=== PATIENT | female | born 1990 | race Caucasian/White ===

== ENCOUNTER 2023-01-22 13:35 | Emergency (ER) | payer OTHER, SELFPAY ==
[2023-01-22 13:40] VITALS: BP 126/81; PULSE 71; RESP 20; TEMP 36.6; O2SAT 100
--- NOTE | 2023-01-22 14:02 | ED.URI ---
HPI - URI/Sore Throat General Chief Complaint: Upper Respiratory Infection Stated Complaint: dizziness; congestion; ear pain Time Seen by Provider: 01/22/23 14:04 History of Present Illness HPI Narrative: Patient presents with nasal congestion and bilateral ear pain. No fever no cough no shortness of breath no chest pain. Patient is taking ibuprofen for symptoms but nothing else. Related Data Home Medications Medication Instructions Recorded Confirmed escitalopram oxalate 10 mg tablet mg 01/22/23 phentermine 30 mg capsule mg 01/22/23 topiramate 50 mg tablet mg 01/22/23 Allergies Allergy/AdvReac Type Severity Reaction Status Date / Time No Known Allergies Allergy Unverified 04/27/19 11:37 Review of Systems Review of Systems: CONSTITUTIONAL: Denies fever, chills, or sweats. EYES: Denies visual changes, redness, or discharge. ENT: Denies rhinorrhea, congestion, sore throat, or otalgia. CARDIOVASCULAR: Denies chest pain, palpitations, or edema. RESPIRATORY: Denies cough or dyspnea. GASTROINTESTINAL: Denies abdominal pain, nausea, vomiting, or diarrhea. GENITOURINARY: Denies dysuria or hematuria. SKIN: Denies rash or itching. MUSCULOSKELETAL: Denies back pain, joint pain, or myalgia. NEUROLOGIC: Denies headache, numbness, or weakness. PSYCHIATRIC: Denies anxiety or depression. PMFSH Comments At time of signature, agree with nursing past medical, surgical, social and family history. There is no relevant family history pertinent to the presenting complaint Exam Narrative: My URI exam The patient is a well-developed, well-nourished in no acute distress. SKIN: Skin is warm and dry without erythema, swelling or exudate. There is good turgor. No tenting. HEAD: Atraumatic. Normocephalic. No temporal or scalp tenderness. EYES: Moist and bright. Sclera and conjunctivae normal. No discharge. PERRLA. Extraocular motions intact. Gross visual acuity intact. EARS: Pinna is normal shape and contour. Clear external auditory canals. TM pearly renner with good cone of light, no erythema or suppuration. Bilateral cerumen noted no gross hearing deficit. NOSE: pink, moist mucosa with good air movement. Clear rhinorrhea without nasal flaring. Septum midline. Mouth: moist mucous membranes. THROAT; mild erythema noted to posterior oropharynx with moderate postnasal drainage. Without exudate or ulceration.. Uvula midline. Normal movement of soft palate. NECK: Supple and nontender with full range of motion without discomfort. No meningeal signs. LUNGS: Equal and bilateral breath sounds without wheezes, rales or rhonchi. CHEST: The chest wall is without retractions or use of accessory muscles. HEART: Has a regular rate and rhythm without murmur, gallops, click or rub. ABDOMEN: Soft, nontender with positive active bowel sounds. No rebound tenderness. EXTREMITIES: Without cyanosis, clubbing or edema. Equal 2+ distal pulses and 2 second capillary refill noted. NEUROLOGIC: alert, active, . The patient moves all extremities with normal muscle strength. Normal muscle tone is noted. Normal coordination is noted. NO focal neurological findings noted. Course Course Level of Care: Express Care Visit Vital Signs Vital signs: Vital Signs Temperature 36.6 C 01/22/23 13:40 Pulse Rate 71 01/22/23 13:40 Respiratory Rate 20 01/22/23 13:40 Blood Pressure 126/81 01/22/23 13:40 Pulse Oximetry 100 01/22/23 13:40 Oxygen Delivery Room Air 01/22/23 13:40 Temperature 36.6 C 01/22/23 13:40 Pulse Rate 71 01/22/23 13:40 Respiratory Rate 20 01/22/23 13:40 Blood Pressure 126/81 01/22/23 13:40 Pulse Oximetry 100 01/22/23 13:40 Oxygen Delivery Room Air 01/22/23 13:40 MDM - URI/Sore Throat Differential Diagnosis Differential diagnosis: Likely upper respiratory infection, croup, otitis media, sinusitis, viral infection, influenza and pharyngitis; Unlikely bronchitis Discharge Plan Discharge Clinical Impression: Upper
== END 2023-01-22 14:07 | disposition home or self-care (01) ==
PROVIDERS: Emergency Provider Nurse Practitioner Family; PCP Internal Medicine
DX: J06.9 Acute upper respiratory infection, unspecified (principal); H69.93 Unspecified Eustachian tube disorder, bilateral
CPT/HCPCS: 99213; G0463

== ENCOUNTER 2023-06-07 17:52 | Emergency (ER) | payer OTHER, SELFPAY ==
[2023-06-07 17:58] VITALS: BP 139/84; PULSE 89; RESP 20; TEMP 37.2; O2SAT 100
--- NOTE | 2023-06-07 18:23 | ED.FEMALEGU ---
HPI - Female Genitourinary General Chief complaint: Urogenital-Female Stated complaint: urinary issue History of Present Illness HPI Narrative: 32-year-old female presents to the [facility] today complaining of burning with urination. Patient stated today she started not feeling well noticed that she was having burning with urination also noticed blood in her urine. Patient states she has never had a urinary tract infection in the past. Patient denies any abdominal pain, flank pain, or back pain. Denies any nausea vomiting diarrhea. Patient denies any concerns for STDs and denies any vaginal discharge. Patient denies any fevers, chills or body aches. Related Data Home Medications Medication Instructions Recorded Confirmed escitalopram oxalate 10 mg tablet 10 mg PO DIRECTED 01/22/23 06/07/23 phentermine 30 mg capsule 30 mg PO DIRECTED 01/22/23 06/07/23 topiramate 50 mg tablet 50 mg PO DIRECTED 01/22/23 06/07/23 Allergies Allergy/AdvReac Type Severity Reaction Status Date / Time No Known Allergies Allergy Verified 06/07/23 18:11 Review of Systems Review of Systems: CONSTITUTIONAL: Denies fever, chills, or sweats. EYES: Denies visual changes, redness, or discharge. ENT: Denies otalgia and sore throat CARDIOVASCULAR: Denies chest pain, palpitations, or edema. RESPIRATORY: Denies cough or dyspnea. GASTROINTESTINAL: Denies abdominal pain, nausea, vomiting, or diarrhea. GENITOURINARY: Positive for dysuria and hematuria SKIN: Denies rash or itching. MUSCULOSKELETAL: Denies back pain, joint pain, or myalgia. NEUROLOGIC: Denies headache, numbness, or weakness. Pertinent positives per HPI. PMFSH Comments At the time of my signature, I reviewed and agree with the nursing past medical, surgical, social, and family history. There is no relevant family history pertinent to the patient complaint. Exam Narrative: GENERAL: This is a well-nourished, well-developed patient, in no apparent distress. HEAD: normocephalic, atraumatic. EYES: Sclera clear/white. Vision is grossly intact. EARS: External ears normal, auditory canals clear and without drainage, TMs normal without perforation. Hearing grossly intact. NOSE: External nose normal with no obvious nasal discharge, nares without redness, no rhinorrhea. THROAT: Mucous membranes moist, posterior pharynx clear. NECK: Neck supple, non-tender without lymphadenopathy, masses or thyromegaly. CARDIOVASCULAR: Regular rate and rhythm without murmurs, gallops, or rubs. RESPIRATORY: Clear to auscultation. Breath sounds equal bilaterally. No wheezes, rales, or rhonchi. GASTROINTESTINAL: Abdomen soft, non-tender, nondistended. Bowel sounds are active. No hepato-splenomegaly, or palpable masses. No guarding. No CVA tenderness present SKIN: warm, intact with no suspicious lesions or rash, good texture and turgor. NEURO: awake, alert, and oriented to person, place and time. There were no obvious focal neurologic abnormalities. EXTREMITIES: No clubbing, cyanosis, or edema. No joint tenderness, effusion, or edema noted. BACK: Nontender without deformity or crepitus. No flank tenderness. Course Course Level of Care: Express Care Visit Vital Signs Vital signs: Vital Signs Temperature 99.0 F 06/07/23 17:58 Pulse Rate 89 06/07/23 17:58 Respiratory Rate 20 06/07/23 17:58 Blood Pressure 139/84 06/07/23 17:58 Pulse Oximetry 100 06/07/23 17:58 Oxygen Delivery Room Air 06/07/23 17:58 Temperature 99.0 F 06/07/23 17:58 Pulse Rate 89 06/07/23 17:58 Respiratory Rate 20 06/07/23 17:58 Blood Pressure 139/84 06/07/23 17:58 Pulse Oximetry 100 06/07/23 17:58 Oxygen Delivery Room Air 06/07/23 17:58 MDM - Female Genitourinary MDM Narrative Medical decision making narrative: We will send a urine culture off to the lab; if the culture identifies an organism that the prescribed antibiotic will not treat, you will receive a phone call
== END 2023-06-07 18:37 | disposition home or self-care (01) ==
PROVIDERS: Emergency Provider Nurse Practitioner Family
DX: N39.0 Urinary tract infection, site not specified (principal)
CPT/HCPCS: 81003; 87077; 87086; 87186; 99213; G0463

== ENCOUNTER 2023-07-06 09:43 | Emergency (ER) | payer OTHER, SELFPAY ==
[2023-07-06 09:48] VITALS: BP 119/85; PULSE 79; RESP 16; TEMP 36.4; O2SAT 100
--- NOTE | 2023-07-06 09:55 | ED.FEMALEGU ---
HPI - Female Genitourinary General Chief complaint: Urogenital-Female Stated complaint: Urinary Problem Time Seen by Provider: 07/06/23 09:58 Source: patient and RN notes reviewed Mode of arrival: ambulatory Limitations: no limitations History of Present Illness HPI Narrative: 32-year-old female presents with concern for dysuria, frequency, urgency, cramping, low back pain. She reports symptoms started last night. She reports she had a urinary tract infection about a month ago. She denies fever, aches, chills, nausea, vomiting. MD elicited complaint: UTI Related Data Home Medications Medication Instructions Recorded Confirmed escitalopram oxalate 10 mg tablet 10 mg PO DAILY 01/22/23 07/06/23 topiramate 50 mg tablet 50 mg PO DIRECTED 01/22/23 07/06/23 Allergies Allergy/AdvReac Type Severity Reaction Status Date / Time No Known Allergies Allergy Verified 07/06/23 09:56 Review of Systems Review of Systems: CONSTITUTIONAL: Denies malaise, chills, sweats, or fever. CARDIOVASCULAR: Denies chest pain, palpitations, or edema. RESPIRATORY: Denies cough or dyspnea. GASTROINTESTINAL: Denies abdominal pain, nausea, vomiting, diarrhea GENITOURINARY: Reports dysuria, frequency, urgency, suprapubic pressure. Denies flank pain or hematuria. SKIN: Denies rash or itching. MUSCULOSKELETAL: Reports low back pain. Denies myalgia. All systems reviewed & are unremarkable except as noted in HPI and below PMFSH Comments At time of signature, agree with nursing past medical, surgical, social and family history. There is no relevant family history pertinent to the presenting complaint Exam Narrative: GENERAL: Well-appearing, well-nourished, and in no acute distress. HEAD: Normocephalic. EYES: PERRLA, conjunctivae clear. NECK: Supple. No lymphadenopathy CHEST: Clear to auscultation. No respiratory distress. HEART: Regular rate and rhythm. ABDOMEN: Soft, nontender upon palpation, nondistended, normal active bowel sounds, no palpable or pulsatile masses, no guarding. Mild bilateral cVA tenderness SKIN: Warm, dry, no rash. NEURO: Alert and oriented x3. PSYCH: Normal mood and affect Course Course Emergency Course: Patient is aware of diagnosis, understands and agrees to treatment plan. Anticipatory guidance given. Patient agrees to follow-up as directed and is aware of reasons to seek care at the emergency department. Portions of this record may have been created with voice recognition software Level of Care: Express Care Visit Vital Signs Vital signs: Vital Signs Temperature 97.5 F L 07/06/23 09:48 Pulse Rate 79 07/06/23 09:48 Respiratory Rate 16 07/06/23 09:48 Blood Pressure 119/85 07/06/23 09:48 Pulse Oximetry 100 07/06/23 09:48 Oxygen Delivery Room Air 07/06/23 09:48 Temperature 97.5 F L 07/06/23 09:48 Pulse Rate 79 07/06/23 09:48 Respiratory Rate 16 07/06/23 09:48 Blood Pressure 119/85 07/06/23 09:48 Pulse Oximetry 100 07/06/23 09:48 Oxygen Delivery Room Air 07/06/23 09:48 Reviewed. MDM - Female Genitourinary MDM Narrative Medical decision making narrative: Exam findings and UA show no acute concerns or changes; patient is non-toxic appearing and is in no distress. Patient is appropriate for outpatient treatment and follow-up. Differential Diagnosis Differential diagnosis: Likely urinary tract infection and cystitis Critical Care Time Critical Care Time Critical Care Time: No Discharge Plan Discharge Clinical Impression: Urinary tract infection Patient Disposition: Home, Self-Care Condition: Stable Instructions: Antibiotic Form, Urinary Tract Infection in Women (ED) Additional Instructions: We will send a urine culture to the lab; if the culture identifies an organism that the prescribed antibiotic will not treat, you will receive a phone call from an urgent care staff member and an appropriate antibiotic will be prescribed. -Your sy
== END 2023-07-06 10:08 | disposition home or self-care (01) ==
PROVIDERS: Emergency Provider Nurse Practitioner; PCP Internal Medicine
DX: N39.0 Urinary tract infection, site not specified (principal); F41.9 Anxiety disorder, unspecified
CPT/HCPCS: 81003; 87077; 87086; 87186; 99213; G0463

== ENCOUNTER 2023-12-27 03:50 | Emergency (ER) | payer OTHER, SELFPAY ==
[2023-12-27] VITALS (13 sets, daily range): BP systolic 106–130; BP diastolic 62–84; PULSE 68–100; RESP 15–20; TEMP 36.7; O2SAT 98–100
--- NOTE | ~2023-12-27 | XR_ITS ---
Clinical Indication: Chest pain PA and lateral views of the chest: Comparison: None Findings: The lungs are clear, without evidence of focal consolidation or pleural effusion. Cardiome diastinal silhouette is within normal limits. Bones and soft tissues are unremarkable. Impression: Normal chest. Reviewed, dictated and finalized at location . [facility] Impression: Normal chest.
--- NOTE | 2023-12-27 03:51 | ECG_ITS ---
Measurements Intervals [place] Rate: 87 P: 43 OH: 156 QRS: 15 QRSD: 78 T: 38 QT: 337 QTc: 407 Interpretive Statements SINUS RHYTHM BASELINE ARTIFACT- I, II NORMAL ECG NO PREVIOUS ECG AVAILABLE FOR COMPARISON Electronically Signed On 12-27-2023 6:28:57 [employer] ERADICATOR by Uziel Bradshaw D.O.
--- NOTE | 2023-12-27 04:16 | ED.GENADULT ---
HPI - General Adult General Chief complaint: Chest Pain Stated complaint: Chest pain Time Seen by Provider: 12/27/23 03:57 History of Present Illness HPI narrative: this is a 33-year-old female presenting with 2 days of chest pain. Patient says she woke up with pain in the center of her sternum. She says is an achy pain that feels like a pulled muscle. It is worse when she moves her arms. It is worse when she pushes the center of her chest. She can not recall any increased physical activity. No risk factors for DVT /PE. No fever chills cough, diaphoresis vomiting or other symptoms. Patient has had chest pain like this several years ago and underwent a full cardiac workup that was negative. Related Data Home Medications Medication Instructions Recorded Confirmed escitalopram oxalate 10 mg tablet 10 mg PO DAILY 01/22/23 07/06/23 topiramate 50 mg tablet 50 mg PO DIRECTED 01/22/23 07/06/23 Allergies Allergy/AdvReac Type Severity Reaction Status Date / Time No Known Allergies Allergy Verified 07/06/23 09:56 Exam Narrative: APPEARANCE: No apparent distress. Head: atraumatic. EYES: EOMI, NOSE: Atraumatic NECK: Trachea midline RESPIRATORY: No increased rate of breathing CARDIOVASCULAR: RRR, No peripheral edema ABDOMINAL: Non-distended MUSCULOSKELETAl: reproducible tenderness to palpation over the sternum. pain with the crowing rooster maneuver. NEURO: Alert. Moving 4/4 extremities SKIN:: Warm, dry. Normal color PSYCHIATRIC: Normal affect Course Vital Signs Vital signs: Vital Signs Pulse Rate 69 12/27/23 04:05 Pulse Oximetry 98 12/27/23 04:05 Oxygen Delivery Room Air 12/27/23 04:05 Temperature 98.1 F 12/27/23 04:06 Pulse Rate 86 12/27/23 04:06 Respiratory Rate 16 12/27/23 04:06 Blood Pressure 119/62 12/27/23 04:06 Pulse Oximetry 100 12/27/23 04:06 Oxygen Delivery Room Air 12/27/23 04:06 Medical Decision Making [facility] Narrative Medical decision making narrative: -Course: 33-year-old female presenting with chest pain. Chest pain is reproducible on palpation and inducible with the crowing rooster maneuver. this is consistent with chest wall pain/chostochondritis. Patient will be trialed on a course of NSAIDs and discharged with primary care follow-up. 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 Independent EKG interpretation: Rhythm [sinus], Rate [87], Isabella -[normal], OH -[normal], QRS [narrow], QTC [normal], T waves -[negative for concerning inversions], ST Segments - [Negative for concerning elevations] Final interpretations: [Normal Sinus Rhythm] test considered but not ordered: PE studies- perc negative, -Interventions: Motrin, Tylenol -Shared decision making / Disposition: discharged -RX Motrin Tylenol Robaxin Vital Signs Vital Signs: Vital Signs Pulse Rate 69 12/27/23 04:05 Pulse Oximetry 98 12/27/23 04:05 Oxygen Delivery Room Air 12/27/23 04:05 Temperature 98.1 F 12/27/23 04:06 Pulse Rate 86 12/27/23 04:06 Respiratory Rate 16 12/27/23 04:06 Blood Pressure 119/62 12/27/23 04:06 Pulse Oximetry 100 12/27/23 04:06 Oxygen Delivery Room Air 12/27/23 04:06 Discharge Plan Discharge Clinical Impression: Acute chest wall pain Patient Disposition: Home, Self-Care Condition: Stable Instructions: Antibiotic Form, Chest Wall Pain (ED) Additional Instructions: please take Motrin Tylenol Robaxin for chest wall pain. Please follow-up with your primary care physician. Return if you feel you are getting worse. Prescriptions: New acetaminophen 500 mg tablet 1,000 mg PO TID PRN (Reason: shey) 7 Days Qty: 42 0RF ibuprofen 800 mg tablet 800 mg PO TID PRN (Reason: p
[2023-12-27] MEDS: IBUPROFEN 400 MG TABLET 800 MG PO (04:43)
[2023-12-27] MEDS: ACETAMINOPHEN 500 MG TABLET 1000 MG PO (04:43)
== END 2023-12-27 05:23 | disposition home or self-care (01) ==
LOC: ANHED 05:04
PROVIDERS: Emergency Provider Emergency Medicine; PCP Internal Medicine
DX: R07.89 Other chest pain (principal)
CPT/HCPCS: 71046; 93005; 99284; A9270

== ENCOUNTER 2024-03-12 01:43 | Emergency (ER) | payer OTHER, SELFPAY ==
[2024-03-12 01:47] VITALS: BP 112/71; PULSE 109; RESP 19; TEMP 36.5; O2SAT 98
--- NOTE | 2024-03-12 01:55 | ECG_ITS ---
SEE SCANNED COPY FOR CONFIRMED REPORT MTDD
--- NOTE | 2024-03-12 01:55 | ED.NAVMDI ---
HPI - Nausea/Vomiting/Diarrhea General Chief complaint: Nausea/Vomiting/Diarrhea <JENSEN Steen Last Filed: 03/12/24 02:40> Stated complaint: N/V, lightheaded, chills <JENSEN Steen Last Filed: 03/12/24 02:40> Time Seen by Provider: 03/12/24 01:46 <JENSEN Steen Last Filed: 03/12/24 02:40> History of Present Illness HPI Narrative: 33-year-old female presents to emergency department for nausea and vomiting that started at 1700 in the evening. Patient states she began vomiting multiple times and is feeling extremely nauseous. She is reporting some diffuse abdominal discomfort but denies focal abdominal pain. LMP 3 days ago. Last bowel movement was today and normal. She denies recorded fever but does states she feels feverish in reports chills. She denies cough congestion, otalgia or sore throat, dysuria or hematuria, diarrhea or recent sick contacts. <JENSEN Steen Last Filed: 03/12/24 02:40> Related Data Home medications: Home Medications Medication Instructions Recorded Confirmed escitalopram oxalate 10 mg tablet 10 mg PO DAILY 01/22/23 07/06/23 topiramate 50 mg tablet 50 mg PO DIRECTED 01/22/23 07/06/23 <JENSEN Steen Last Filed: 03/12/24 02:40> Allergies/Adverse reactions: Allergies Allergy/AdvReac Type Severity Reaction Status Date / Time No Known Allergies Allergy Verified 03/12/24 01:49 <JENSEN Steen Last Filed: 03/12/24 02:40> Review of Systems Review of Systems: CONSTITUTIONAL: Denies fever, chills, or sweats. EYES: Denies visual changes, redness, or discharge. ENT: Denies rhinorrhea, congestion, sore throat, or otalgia. CARDIOVASCULAR: Denies chest pain, palpitations, or edema. RESPIRATORY: Denies cough or dyspnea. GASTROINTESTINAL: See HPI GENITOURINARY: Denies dysuria or hematuria. SKIN: Denies rash or itching. MUSCULOSKELETAL: Denies back pain, joint pain, or myalgia. NEUROLOGIC: Denies headache, numbness, or weakness. PSYCHIATRIC: Denies anxiety or depression. <JENSEN Steen Last Filed: 03/12/24 02:40> Exam Narrative: GENERAL: Well-appearing, well-nourished, and in no acute distress. HEAD: Normocephalic, atraumatic. EYES: PERRLA and EOMI. ENT: Nares clear, no rhinorrhea or epistaxis. Mucous membranes moist. NECK: Supple. CHEST: Clear to auscultation. No respiratory distress. HEART: Regular rate and rhythm. No murmur heard. Normal peripheral pulses. ABDOMEN: Soft, nontender, nondistended, normal active bowel sounds. no guarding, rebound or rigidity. No CVA tenderness. EXTREMITIES: Normal range of motion. No edema. SKIN: Warm, dry, no rash. NEURO: No focal deficits. Alert and oriented x3 <JENSEN Steen Last Filed: 03/12/24 02:40> Course Vital Signs Vital signs: Vital Signs Temperature 36.5 C 03/12/24 01:47 Pulse Rate 109 H 03/12/24 01:47 Respiratory Rate 03/12/24 01:47 Blood Pressure 112/71 03/12/24 01:47 Pulse Oximetry 98 03/12/24 01:47 Oxygen Delivery Room Air 03/12/24 01:47 Temperature 36.5 C 03/12/24 01:47 Pulse Rate 109 H 03/12/24 01:47 Respiratory Rate 03/12/24 01:47 Blood Pressure 112/71 03/12/24 01:47 Pulse Oximetry 98 03/12/24 01:47 Oxygen Delivery Room Air 03/12/24 01:47 <JENSEN Steen Last Filed: 03/12/24 02:40> Vital Signs Temperature 36.5 C 03/12/24 01:47 Pulse Rate 109 H 03/12/24 01:47 Respiratory Rate 03/12/24 01:47 Blood Pressure 112/71 03/12/24 01:47 Pulse Oximetry 98 03/12/24 01:47 Oxygen Delivery Room Air 03/12/24 01:47 Temperature 36.5 C 04/15/24 01:47 Pulse Rate 109 H 03/12/24 01:47 Respiratory Rate 19 03/12/24 01:47 Blood Pressure 112/71 03/12/24 01:47 Pulse Oximetry 98 03/12/24 01:47 Oxygen Delivery Room Air 03/12/24 01:47 <Torsten Eid MD - Last Filed: 03/12/24 04:07> RICHARD -
[2024-03-12] MEDS: FAMOTIDINE 20 MG/2 ML VIAL IV PUSH (02:22)
[2024-03-12] MEDS: ONDANSETRON INJ 4 MG/2 ML VIAL IV PUSH (02:22)
[2024-03-12] MEDS: SODIUM CHLORIDE 0.9% IV 1,000 ML 999 ML IV CONT (02:23)
[2024-03-12] MEDS: ACETAMINOPHEN 500 MG TABLET 1000 MG PO (02:29)
[2024-03-12 02:31] LABS: Hematocrit 40.9 % (37.0-47.0); Mean Corpuscular HGB Conc 31.8 g/dl (32-36); Mean Corpuscular Hemoglobin 26.4 pg (26-34); Mean Corpuscular Volume 83.1 fl (80-100); Mean Platelet Volume 11.4 fl (7.4-10.4); Platelet Count Result 215 k/mm3 (150-375); Red Blood Count 4.92 M/mm3 (4.2-5.4); Red Cell Distribution Width 15.2 % (11.5-14.5); White Blood Count 8.4 K/mm3 (4.5-10.0)
[2024-03-12 02:43] LABS: Lactic Acid Reflex 1.2 mmol/L (0.7-2.0)
[2024-03-12 02:44] LABS: Alanine Aminotransferase 16 U/L (6-35); Albumin Level 4.4 g/dL (3.5-5.1); Alkaline Phosphatase 73 U/L (38-126); Anion Gap 11 mmol/L (4-12); Aspartate Amino Transferase 21 U/L (14-36); Bilirubin,Total 0.7 mg/dL (0.2-1.3); Blood Urea Nitrogen 19 mg/dL (7-17); Calcium 9.2 mg/dL (8.4-10.2); Carbon Dioxide 19 mmol/L (22-30); Chloride 107 mmol/L (98-107); Estimated CRCL calculation 90 ml/min; Estimated Glomerular Filt Rate > 60; Glucose 127 mg/dL (65-110); Lipase 61 U/L (23-300); Potassium 3.8 mmol/L (3.4-5.0); Sodium 137 mmol/L (137-145)
[2024-03-12 02:53] LABS: Band Neutrophils Percent 10 % (0-6); Lymphocytes Absolute Manual 0.16 K/mm3 (1.1-4.5); Lymphocytes Percent Manual 2 % (18-44); Monocytes Absolute Manual 0.33 K/mm3 (0.1-0.90); Monocytes Percent Manual 4 % (3-9); Neutrophils Absolute Manual 7.89 K/mm3 (1.7-7.2); Neutrophils Percent Manual 84 % (46-73); Platelet Estimate Adequate (Adequate); Total Cells Counted 100
[2024-03-12 02:54] LABS: Anisocytosis 1+; Schistocytes None Seen
[2024-03-12 03:13] LABS: Influenza A QL RT-PCR Negative (Negative); Influenza B QL RT-PCR Negative (Negative); RSV RNA, RT-PCR Negative (Negative); SARS-CoV-2 RNA PCR Negative (Negative)
[2024-03-12 03:43] LABS: Appearance Urine Clear (Clear); Bilirubin Urine Negative (Negative); Blood Urine Negative (Negative); Color Urine Yellow (Yellow); Glucose Urine UA Negative (Negative); Ketones Urine 1+ mg/dL (Negative); Leukocyte Esterase Ur Negative LEU/UL (Negative); Nitrate Urine Negative (Negative); Protein Urine Negative (Negative); Specific Grav Ur 1.022 (1.001-1.035); pH Urine 7.5 (5.0-9.0)
[2024-03-12 03:59] LABS: Add Urine Microscopic? NO
== END 2024-03-12 04:20 | disposition home or self-care (01) ==
PROVIDERS: Physician Assistant; Emergency Provider Emergency Medicine
DX: K52.9 Noninfective gastroenteritis and colitis, unspecified (principal); Z20.822 Contact with and (suspected) exposure to COVID-19
CPT/HCPCS: 36415; 80053; 81003; 81025; 83605; 83690; 85025; 87637; 93005; 96361; 96374; 96375; 99284; A9270; J2405; J7030

== ENCOUNTER 2024-10-02 15:28 | Emergency (ER) | payer OTHER, SELFPAY ==
[2024-10-02 15:33] VITALS: BP 114/68; PULSE 77; RESP 16; TEMP 36.6; O2SAT 100
[2024-10-02 16:01] LABS: EDUAAPPEAR Cloudy; EDUABILI 1+ (Negative); EDUABLOOD 3+ (Negative); EDUACOLOR1 Dark; EDUAGLUCOSE Negative (Negative); EDUAKETONE Trace (Negative); EDUALEUKO Trace (Negative); EDUANITRATE Negative (Negative); EDUAPROTEIN 2+ (Negative)
--- NOTE | 2024-10-02 16:14 | ED.FEMALEGU ---
HPI - Female Genitourinary General Chief complaint: Urogenital-Female Stated complaint: poss UTI Source: patient and RN notes reviewed Mode of arrival: ambulatory Limitations: no limitations History of Present Illness HPI Narrative: 34-year-old female presented for complaint of burning with urination and suprapubic discomfort. 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 States she gets UTIs that progress quickly. Last UTI approx 1 year ago. denies hematuria, nausea, vomiting, abdominal pain, flank pain, constipation, diarrhea, fevers or chills. Related Data Home Medications Medication Instructions Recorded Confirmed escitalopram oxalate 10 mg tablet 10 mg PO DAILY 01/22/23 10/02/24 semaglutide (weight loss) 0.5 0.5 mg subcut WEEKLY 10/02/24 10/02/24 mg/0.5 mL subcutaneous pen injector (Wegovy) Allergies Allergy/AdvReac Type Severity Reaction Status Date / Time No Known Allergies Allergy Verified 10/02/24 15:50 Review of Systems Review of Systems: CONSTITUTIONAL: Denies body aches, fever, chills, or sweats. CARDIOVASCULAR: Denies chest pain, palpitations, or edema. RESPIRATORY: Denies cough or dyspnea. GASTROINTESTINAL: Denies abdominal pain, nausea, vomiting, or diarrhea. GENITOURINARY: Reports dysuria, denies frequency, urgency, hematuria, flank pain SKIN: Denies rash, itching, or wounds. MUSCULOSKELETAL: Denies back pain or myalgia. PMFSH Comments At time of signature, I have reviewed and agree with nursing past medical, surgical, social and family history unless otherwise noted. Please see nursing chart for further information. There is no relevant family history pertinent to the presenting complaint Exam Narrative: GENERAL: Well-appearing ENT: Mucous membranes pink and moist. CHEST: No respiratory distress. Clear to auscultation. HEART: Regular rate and rhythm. ABDOMEN: Soft, nontender, nondistended, normal active bowel sounds. No CVA tenderness SKIN: Warm, dry, no rash. NEURO: No focal deficits. Alert and oriented x3. Gait steady. PSYCH: Normal affect. Course Course Emergency Course: Patient is aware of diagnosis, understands and agrees to treatment plan. Anticipatory guidance given. Patient agrees to follow-up as directed and is aware of reasons to seek care at the emergency department. Portions of this record may have been created with voice recognition software Level of Care: [facility] Care Visit Vital Signs Vital signs: Vital Signs Temperature 97.8 F 10/02/24 15:33 Pulse Rate 77 10/02/24 15:33 Respiratory Rate 16 10/02/24 15:33 Blood Pressure 114/68 10/02/24 15:33 Pulse Oximetry 100 10/02/24 15:33 Oxygen Delivery Room Air 10/02/24 15:33 Temperature 97.8 F 10/02/24 15:33 Pulse Rate 77 10/02/24 15:33 Respiratory Rate 16 10/02/24 15:33 Blood Pressure 114/68 10/02/24 15:33 Pulse Oximetry 100 10/02/24 15:33 Oxygen Delivery Room Air 10/02/24 15:33 Reviewed MDM - Female Genitourinary MDM Narrative Medical decision making narrative: Discussed physical exam findings and urine dip. Reviewed Rx. Advised supportive measures and signs/symptoms to go to the ER. Pt is appropriate for outpt treatment and f/u. Differential Diagnosis Differential diagnosis: Likely urinary tract infection, vaginitis, cystitis and other Lab Data Labs: Lab Results 10/02/24 Range/Units 15:42 POC Urine Color Dark POC Urine Clarity Cloudy POC Urine pH 6.0 POC Ur Specif [place] 1.030 POC Urine Protein 2+ (Negative) POC Ur Glucose (UA) Negative (Negative) POC Urine Ketones Trace (Negative) POC Urine Blood 3+ (Negative) POC Urine Nitrite Negative (Negative) POC Urine Bilirubin 1+ (Negative) POC Urine Urobilinogen 1.0 POC U Leukocyte Esteras Trace (Negative) Discharge Plan Discharge Clinical Impression: Urinary tract infection Patient Disposition: Home, Self-Care Condition: Stable Instructions: Antibiotic Form, Urinary Tract Infection in Women (ED) Additional Instructions: Take the antibiotic as prescribed The urine will be sent of for a culture to identify what type of bacteria is causing your infection. If the culture shows that the antibiotic will not get rid of your infection, you will be notified and a new antibiotic will be called in for you. Increase water intake you will need to follow up with your PCP, call to schedule an appointment. Go to the ER for any worsening symptoms or concerns Prescriptions: New nitrofurantoin monohyd/m-cryst [Macrobid] 100 mg capsule 100 mg PO Q12H 5 Days Qty: 10 0RF Rx Instructions: must administer with a meal/food phenazopyridine [Pyridium] 200 mg tablet 200 mg PO TID 2 Days Qty: 6 0RF No Action escitalopram oxalate 10 mg tablet 10 mg PO DAILY Wegovy 0.5 mg/0.5 mL pen injector 0.5 mg SUBCUT WEEKLY Follow-up/Referrals: Rolando,Meron Swartz [Primary Care Provider] - Time of Disposition: 16:15
== END 2024-10-02 16:17 | disposition home or self-care (01) ==
PROVIDERS: Emergency Provider Nurse Practitioner Family; PCP Nurse Practitioner
DX: N39.0 Urinary tract infection, site not specified (principal)
CPT/HCPCS: 81003; 87086; 99213; G0463

== ENCOUNTER 2025-06-21 19:01 | Emergency (ER) | payer OTHER, SELFPAY ==
--- NOTE | ~2025-06-21 | XR_ITS ---
EXAMINATION: XR toe 4th LT min 2V DATE: 06/21/2025 19:25 INDICATION: Left fourth toe feels floppy post injury 4 weeks prior. TECHNIQUE: Dorsal plantar, lateral and 2 oblique views of the left fourth toe were obtained. COMPARISON: None FINDINGS: Oblique diaphyseal fracture of the left fourth proximal phalanx with minimal dorsal lateral displacem ent, 7 degrees dorsal angulation and 2 mm proximal migration with overriding. No evident periosteal r eaction or callus formation yet apparent. No other fractures identified. Joint spaces are normal. IMPRESSION: Extra articular diaphyseal fracture of the left fourth proximal phalanx with minimal displacement and some degree dorsal angulation which remains ununited with no productive changes of healing yet appar ent. Reviewed, dictated and finalized at location A. IMPRESSION: Extra articular diaphyseal fracture of the left fourth proximal phalanx with mi nimal displacement and some degree dorsal angulation which remains ununited wit h no productive changes of healing yet apparent.
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
--- OUTSIDE RECORDS SUMMARY | 2025-06-21 19:04 | XMS_ITS | Clinical Summary ---
Author Organization [facility] Address [address] [place] [id number] Care Team Providers Care Photo Technologist Name Role Phone Unavailable Primary Care Provider Unavailabl e Immunizations Immunization Administration Dates Next Due INFLUENZA VACCINE QUADRIVALENT 6 MOS UP PF IM Social History Tobacco Use Types Packs/Day Years Used Date Smoking Tobacco: Never Assessed Comments Unknown Sex and Gender Information Value Date Recorded Sex Assigned at Not on file Legal Sex Female 8:07 AM CDT Gender Identity Not on file Sexual Orientation Not on file Plan of Treatment Health Maintenance Due Date Last Done Comments HPV VACCINES (1 - 3-dose series) 2007 DTAP/TDAP/TD VACCINES (1 - Tdap) 2011 HEPATITIS B VACCINES (1 of 3 - 19+ 3-dose series) 08/29 HPV/Cotest (21-29) 2013 CERVICAL CANCER SCREENING 2022 HPV/Cotest (30-65) 2022 PAP SMEAR 2022 INFLUENZA VACCINE (#1) 2025 08/19/2020 Insurance [employer] O OPEN ACCESS
--- OUTSIDE RECORDS SUMMARY | 2025-06-21 19:04 | XMS_ITS | Clinical Summary ---
Author Organization [facility] Address [address] [place] [address] Care Team Providers Care Drawing Machine Operator Name Role Phone Shantel Taylor MD Primary Care Provider [phone] Allergies No known active allergies Medications ergocalciferol [...] CBC. Assessment & Plan (11/26/2019 10:25 PM SANDING MACHINE BUFFER): Continue iron supplementation and check iron levels [...] ears Assessment & Plan (01/27/2023 10:26 AM SANDING MACHINE BUFFER): Ordered Azithromycin and Medrol- take as prescribed Patient educated on new medications and side effects Patient advised to stop Medrol if she has increased or racing heart and/or palpitations Encouraged to call and schedule appoint if no improvement in 1 week Follow up in 3 months for annual exam Fasting labs ordered Postnasal drip 01/27/2023 07/27/2024 Assessment & Plan (01/27/2023 10:20 AM SANDING MACHINE BUFFER): Continue with Fluticasone nasal spray as directed [...] 07/27/2024 Overview (06/09/2021): --Di/Di Twins, FREDDIE from [facility] at 13 weeks. -NSTs @ 32wks -BPPs until 36wks d/t failed NSTs --conceived on Clomid -mild anemia, daily feso4 -please discuss delivery planning 38wks [x] Labs: (had gc/ch and trich test done @ [facility]) Labs: Lab Results Component Value Date ABORH A Positive 01/09/2021 IDCOOMB Negative 01/09/2021 [id number] Nonreactive 01/09/2021 LABRPR Nonreactive 01/09/2021 RUBELIGG Reactive [...] 11/10/201707/27 Assessment & Plan (11/10/2017 11:14 AM SANDING MACHINE BUFFER): Patient was thoroughly assessed with no focal [...] additional follow-up. She was encouraged to take cuwc-zuk-qjulgqb anti inflammatory, ibuprofen up to 600 mg 3 times daily as needed. She was also given a short course of Parafon Forte for use at bedtime for muscle spasm/tension. She was encouraged to follow up here with any change in, worsening, or non improvement in her condition. Other headache syndrome 11/10/2017/04/2018 Assessment & Plan (11/10/2017 11:14 AM SANDING MACHINE BUFFER): Patient was thoroughly assessed with no focal neurological deficits noted. Her symptoms are consistent with a mild concussion. Diagnoses was discussed at length. She was given handout regarding concussive symptoms - what is normal and what would warrant additional follow-up. She was encouraged to take gzru-tev-oiwqxen anti inflammatory, ibuprofen up to 600 mg 3 times daily as needed. She was also given a short course of muscle relaxant, Parafon Forte, for use at bedtime for muscle spasm/tension. She was encouraged to follow up with any change in, worsening, or non improvement in her condition. Acute appendicitis 12/06/2015 7 Overview (03/03/2017): Acute appendicitis Chronic headache 04/13/2014 07/27/2024 Encounters Date Type Department Care Team Description 06/15/2025 4:30 PM CDT Office Visit [facility] [place] [address] [place] [address] Lydia Rene NP Vertigo (Primary Dx) 05/24/2025 10:00 AM CDT Office Visit [facility] at [address] [place] [phone] Shantel Taylor MD Fatigue, unspecified type (Primary Dx); Fibromyalgia syndrome 05/03/2025 10:30 AM CDT Office Visit [facility] at [address] [place] [address] Diana Kim MD Fibromyalgia syndrome (Primary Dx) from Last 3 Months Immunizations Immunization Administration Dates Next Due DTP 07/25/1998, 4,07/28/1993,05/05,01/26/1993 HPV, Quadrivalent 2008 Hep B, Adolescent or Pediatric 08/28/1998,1992,07/28/1993 Hib (HbOC) 12/24/1993, 3,01/26/1993,11/18 Influenza, Quadrivalent, Spl it, Preservative Free, Intramuscular 08/19/2020 Influenza, Trivalent, Recomb inant, Egg Free, Preservative Free, Antibiotic Free, IM (FLUBLOK) 10/07/2014 Influenza, Unspecified 09/29/2023,2022(Deferred: Patient Refused),08/28/2022,06/28/2022(Deferre d: Patient Refused),08/26/2020(Deferred: Patient Refused),08/19/2020,08/28/2019, 019(Deferred: Patient ill today),09/04/2018(Deferred: Patient Refused),08/28/2018(Deferred: Patient Refused),08/09/2017 MMR 07/25/1998,12/24/1993 OPV 07/25/1998, 4,05/05/1993,01/26 Pfizer SARS-CoV-2 Monovalent Vaccination (12+ Yrs) PURPLE 06/26/2021 Td, adsorbed 2008 Tdap 05/08/2021,11/06/2019 Surgical History Surgery Date Site/Laterality Comments APPENDECTOMY Appendectomy SECTION REFRACTIVE SURGERY Medical History Medical History Date Comments Hx Other Medical anxiety with pa niles attacks Hx Other Medical Mirena IUD 06/16 [facility] Closed fracture of left distal radius 08/14/2019 Supervision of other normal , antepartum 12/17/2020 --Di/Di Twins, FREDDIE from [facility] at 13 weeks. -NSTs @ 32wks -BPPs until 36wks d/t failed NSTs --conceived on Clomid -mild anemia, daily feso4 -please discuss delivery planning 38wks ? Labs: (had gc/ch and trich test done @ [facility]) Labs: Lab Results Component Value Date ABORH A Positive GERD (gastroesophageal reflux disease) 0 Family History Medical History Relation Name Comments Other Brother 2 Alive and well; Twin Hypertension Father Jefry Bermeo Other Father Jefry Bermeo Alive and well; Breast cancer Mother Other Mother Cancer -skin (m elanoma?); Relation Name Status Comments Brother 1 Alive Brother 2 Father Jefry Bermeo Alive Mother Alive Social History Tobacco Use Types Packs/Day Years Used Date Smoking Tobacco: Never Cigarettes Smokeless Tobacco: Never Tobacco Cessation:Counseling Given: Not Answered Alcohol Use Standard Drinks/Week Comments Not Currently 0 (1 standard drink = 0.6 oz pur e alcohol) [facility] Utilities Answer Date Recorded In the past 12 months has th e electric, gas, oil, or water company threatened to shut off services in your [...] week 07/27/2024 How often do you attend [facility] or orthodox services? More than 4 times per year 07/27/2024 Do you belong to any clubs o r organizations such as hinduism groups, unions, fraternal or athletic groups, or [...] staff should administer the PHQ-9) 0 05/24/2025 [facility] of Occupat ional Health - Occupational Stress [...] any time in the past 12 m [facility], were you homeless or living in a senior living (including now)? No 07/27/2024 Comments No Sex and Gender Information Value Date Recorded Sex Assigned at Not on file Legal Sex Female 9:55 AM SANDING MACHINE BUFFER Gender Identity Female 01/16/2021 2:20 PM SANDING MACHINE BUFFER Sexual Orientation Straight 01/16/2021 2: 20 PM SANDING MACHINE BUFFER Occupation Industry Job Start Date Job End Date Not on file Not on file Not on file Not on file Obstetrics History Para Term AB IAB SAB Ectopic Multiple Livin g Live Births 1 1 0 1 0 0 0 0 1 2 2 Date Outcome GA Total Labor Labor/2nd/3rd Weight Sex Type Anes PTL Nisa A1 A5 Name Clin 2020 36w 3d 0h 06m 0h 06m 2.65 kg (5 lb 13.5 oz) M CS-LT ranv Combin ed Spinal /Epidu ral N Livin g 7 7 KIMBERLEE OTT Tammy Shim, MD Complications:Pre eclampsia Delivery Location:[facility] Main C ampus ([facility] L AND D PROCEDURE) 2020 36w 3d 0h 03m 0h 03m 2.76 kg (6 lb 1.4 oz) F CS-LT ranv Combin ed Spinal /Epidu ral N Livin g 7 8 CARLOS ALBERTOMADYEsdras German, Sumaya Muller MD Complications:Pre eclampsia Delivery Location:[facility] Main C ampus ([facility] L AND D PROCEDURE) Comments [id number] who is b eing admitted for preE w/SF with [facility] visit due to notable headache not relieved by tyl, compazine, fioricet and newly elevated BPs max to 150/90s and upc 0.7 to make this dx, all other labs WNL. DADC TIUP with Breech/Tr Last Filed Vital Signs Vital Sign Reading [...] 06/15/2025 4:29 PM CDT Plan of Treatment Health Maintenance Due Date Last Done Comments HPV Vaccines (2 - 3-dose series) 10/14/2008 2008 Regular Well Visit/Exam 18-64 03/13/2022 03/13/2021, 11/06/2019, 08/19/2017 Cervical Cancer Screening 09/14/2024 09/14/2023 Influenza Vaccine (#1) 2025 , 08/28/2022, 08/19/2020, Additional history exists Depression Screening 05/24/2026 05/24/2025, 05/03/2025, 07/27/2024, Additional history exists DTaP/Tdap/Td Vaccine (8 - Td or Tdap) 05/08/2031 05/08/2021, 11/06/2019, 2008, Additional history exists Hepatitis B Screening Completed 08/28/1998 , 11/18/1993, 07/28/1993 Covid-19 Vaccine Discontinued 10/07/2021, 06/26/2021 Hepatitis C Screening Completed 07/27/2024 Pneumococcal vaccine <65 Aged Out No longer eligible based on patient's age to complete this topic Varicella Vaccines Discontinued Procedures Procedure Name Priority Date/Time Associated Diagnosis [...] last revised on 2020. Testing performed by: [facility], [address] [place] [address], [place]., [address] Blood 07/27/2024 8:42 AM CDT 07/27/2024 12:13 PM CDT us Meron Marshall NP LAB MICROBIOLOGY - GENERAL ORDER LEATHA Edited Result - Final GAVINO TINOCO (BETH) [facility] Department [place] [address] from Last 3 Months or Most Recently Relevant to Health Maintenance Insurance [employer] [facility] [place] [address] [place] [id number] [facility] CHOICE PLUS Advance Directives For more information, please contact: [phone] * Full Code (Latest Code Status on File) Date Activated Date Inactivated Comments 06/24/2021 6:52 AM 06/27/2021 10:29 PM * Full Code Date Activated Date Inactivated Comments 06/24/2021 1:54 AM 06/24/2021 6:52 AM Full CPR in case of cardiopulmonary arrest Care Teams Drawing Machine Operator Relationship Specialty Start Date End Date Shantel Taylor MD [address] [facility] [facility] [address] [place] [address] [place] [id number] PCP - General Family Medicine 05/24/25
--- OUTSIDE RECORDS SUMMARY | 2025-06-21 19:04 | XMS_ITS | Data Portability ---
Author Organization [facility] Address [address] [place] [address] Assessment Encounter Date Assessment Date Assessment LastModified by Organization Details LastModified Time 09/14/2023 09/14/2023 Annual gynecological exam performed. Patient will come back in a year unless there are new symptoms. Suggest Calcium with Vitamin D if not eating in diet. Patient advised to get annual flu shot. Recommend yearly physicals and preform monthly breast exams. Genetic testing is available for patients with family history of cancer. Engage in safe sexual practices, use condoms. Encouraged to have daily exercise. Avoid tobacco and illicit drugs, moderation of alcohol. If BMI greater than 25 dietary consult advised. If you have any questions please call or email. Not available 09/14/2023 11:07:59 01/30/2025 01/30/2025 Annual gynecological exam performed. Patient will come back in a year unless there are new symptoms. Suggest Calcium with Vitamin D if not eating in diet. Patient advised to get annual flu shot. Recommend yearly physicals and preform monthly breast exams. Genetic testing is available for patients with family history of cancer. Engage in safe sexual practices, use condoms. Encouraged to have daily exercise. Avoid tobacco and illicit drugs, moderation of alcohol. If BMI greater than 25 dietary consult advised. If you have any questions please call or email. [email or web address] Not available 01/30/2025 14:25:07 Plan of Treatment Reminders Order Date Submit Date Provider Last Modified By Organization Details Last Modified Time Details Appointments None recorded. Lab TSH, serum or plasma 2024 025 [facility] (Lab), [address], [place], [address], 5 08:43:04 CBC w/ auto diff 2024 025 [facility] (Lab), [address], [place], [address], 5 08:43:03 25-hydroxyv itamin D2 + 25-hydroxyv itamin D3, QN, serum or plasma 2024 025 [facility] (Lab), [address], [place], [address], 5 08:43:05 vitamin B12 + folate, serum or blood 2024 025 [facility] (Lab), [address] [place], [address], 5 08:43:04 Referral None recorded. Procedures None recorded. Surgeries None recorded. Imaging None recorded. Medication Orders phentermine 30 mg capsule 2022 023 [email or web address] [facility] [id number], [address], 3 09:48:56 topiramate 50 mg tablet 2022 023 [email or web address] 1 [facility] [id number], [address], 3 09:49:00 phentermine 30 mg capsule 2022 023 [email or web address] 1 [facility] [id number], [address], 3 09:48:56 phentermine 30 mg capsule 2022 023 [email or web address] 1 [facility] [id number], [address], 3 09:48:56 Patient TargetsNo targets recorded. Patient InstructionsNo instructions recorded. Reason for Referral None Reported. Results Created Date Observation Date Name Description Value Unit Range Abnormal Flag Note LastModifiedBy Organization Detail LastModifiedTime 09/14/20 23 09/14/2023 IMAGE GUIDE D PAP AND HPV REGAR DLESS image guided Pap, HPV regardless of Pap result SEE RESULT S BELOW CASE REPOR T: Cytol ogy Gynec ologi jenni Repor t Case: [id number] Autho nelson g Provi wolf: Kavita Petit, INGA Colle cted: 09/14 1321 Order ing Locat ion: [place] [facility] Recei chris: 09/15 0113 First Scree n: Teodoro Barnes , [place] Speci men: Leon mtz Pap - Image d, Cervi x STATE MENT OF ADEQU ACY: Satis facto ry for evalu ation Trans forma tion zone compo nent prese nt FINAL DIAGN OSIS: Negat khari for Intra epith elial Lesrojelio madera or Estefani forman (NIL) . Elect alfredo trinh андрей d by Teodoro Barnes , CT on 09/18 at 2:43 PM ----- ----- ----- ----- ----- ----- ----- ----- ----- ----- ----- ----- ----- ----- ----- ----- ----- ---- HPV RESUL TS: HPV mRNA E6/E7 : No HPV mRNA Detec [place] NOTE: This high risk HPV mRNA assay detec ts fourt een high- risk HPV types (16, 18, 31, 33, 35, 39, 45, 51, 52, 56, 58, 59, 66, 68) witho ut diffe renti ation . COMME NT: This speci men was revie wed by a Cytot echno logis t and/o r Patho logis t (as indic ated in this repor t) after evalu ation using the Thinp rep Imagi ng Syste m. CLINI JENNI INFOR MATIO N: Menst rual Statu s: LMP (if appli cable ): Clini jenni Histo ry/Pr eviou s Pap: Type of Neopl logan (if appli cable ): Signi fican t Clini jenni Findi ngs: Other Histo ry: Hormo brittany (if appli cable ): PAP EDUCA LIBRA L NOTE: The Pap Test is a scree smith test with an inher ent false negat khari rate. Liqui d-bas ed sampl ing may decre ase, but will not elimi sammy, false negat khari resul ts. A negat khari resul t does not precl ude the prese nce and/o r devel opmen t of disea se, since the prese nce of abnor mal cells in the sampl e depen ds on the locat ion of the lesio n and sampl ing techn ique. Eladia nued regul ar scree smith is the best metho d of cance r preve ntion . If repor [place] cytol ogic findi ng do not corre late with physi jenni and/o r histo rical findi ngs, furth er inves tigat ion is recom rocco d, as clini axel mariscal nted. Not Available [facility] (Lab) [address], [place], [address], 09/18/2023 15:45:32 01/31/20 25 01/30/2025 CBC W/DIF F WBC 6.1 10'3/ uL 3.5-10 .5 Not Available [facility] (Lab) [address] [place], [address], 01/31/2025 08:43:03 01/31/20 25 01/30/2025 CBC W/DIF F RBC 4.74 10'6/ uL (based on docume nted legal sex) 3.80-5 .20 Not Available [facility] (Lab) [address], [place], [address], 01/31/2025 08:43:03 01/31/20 25 01/30/2025 CBC W/DIF F HGB 12.9 g/dL (based on docume nted legal sex) 11.6-1 5.4 Not Available [facility] (Lab) [address], [place], [address], 01/31/2025 08:43:03 01/31/20 25 01/30/2025 CBC W/DIF F HCT 41.1 % (based on docume nted legal sex) 34.0-4 5.0 Not Available [facility] (Lab) [address], [place], [address], 01/31/2025 08:43:03 01/31/20 25 01/30/2025 CBC W/DIF F MCV 86.7 fL 80.0-9 9.0 Not Available [facility] (Lab) [address], [place], [address], 01/31/2025 08:43:03 01/31/20 25 01/30/2025 CBC W/DIF F MCH 27.2 pg 27.0-3 4.0 Not Available [facility] (Lab) [address], [place], [address], 01/31/2025 08:43:03 01/31/20 25 01/30/2025 CBC W/DIF F MCHC 31.4 g/dL 32.0-3 5.5 low Not Available [facility] (Lab) [address] [place], [address], 01/31/2025 08:43:03 01/31/20 25 01/30/2025 CBC W/DIF F RDW 14.3 % 11.0-1 5.0 Not Available [facility] (Lab) [address] [place], [address], 01/31/2025 08:43:03 01/31/20 25 01/30/2025 CBC W/DIF F plt 270 10'3/ uL 150-40 0 Not Available [facility] (Lab) [address], [place], [address], 01/31/2025 08:43:03 01/31/20 25 01/30/2025 CBC W/DIF F MPV 11.9 fL 8.8-12 .1 Not Available [facility] (Lab) [address], [place], [address], 01/31/2025 08:43:03 01/31/20 25 01/30/2025 CBC W/DIF F neutrophils 60.4 % 34.0-7 3.0 Not Available [facility] (Lab) [address], [place], [address], 01/31/2025 08:43:03 01/31/20 25 01/30/2025 CBC W/DIF F lymphocytes 29.7 % 15.0-5 0.0 Not Available [facility] (Lab) [address], [place], [address], 01/31/2025 08:43:03 01/31/20 25 01/30/2025 CBC W/DIF F monocytes 7.2 % 1.0-15 .0 Not Available [facility] (Lab) [address], [place], [address], 01/31/2025 08:43:03 01/31/20 25 01/30/2025 CBC W/DIF F eosinophils 1.5 % 0.0-8. 0 Not Available [facility] (Lab) [address], [place], [address], 01/31/2025 08:43:03 01/31/20 25 01/30/2025 CBC W/DIF F basophils 1.0 % 0.0-2. 0 Not Available [facility] (Lab) [address], [place], [address], 01/31/2025 08:43:03 01/31/20 25 01/30/2025 CBC W/DIF F immature granulocytes 0.2 % no define d refere nce range Immat ure Granu locyt es (IG) repre sents autom ated enume ratio n of Metam yeloc ytes, Myelo cytes and Promy elocy yanet when IG is < 5%. Blast s are not inclu ded in IG and repor [place] separ ately if prese nt. Not Available [facility] (Lab) [address], [place], [address], 01/31/2025 08:43:03 01/31/20 25 01/30/2025 CBC W/DIF F absolute neutrophils 3.7 10'3/ uL 1.5-8. 0 Not Available [facility] (Lab) [address], [place], [address], 01/31/2025 08:43:03 01/31/20 25 01/30/2025 CBC W/DIF F absolute lymphocytes 1.8 10'3/ uL 1.0-4. 0 Not Available [facility] (Lab) [address], [place], [address], 01/31/2025 08:43:03 01/31/20 25 01/30/2025 CBC W/DIF F absolute monocytes 0.4 10'3/ uL 0.2-1. 0 Not Available [facility] (Lab) [address] [place], [address], 01/31/2025 08:43:03 01/31/20 25 01/30/2025 CBC W/DIF F absolute eosinophils 0.1 10'3/ uL 0.0-0. 6 Not Available [facility] (Lab) [address] [place], [address], 01/31/2025 08:43:03 01/31/20 25 01/30/2025 CBC W/DIF F absolute basophils 0.1 10'3/ uL 0.0-0. 3 Not Available [facility] (Lab) [address] [place], [address], 01/31/2025 08:43:03 01/31/20 01/30/2025 CBC W/DIF F absolute immature granulocytes 0.0 10'3/ uL 0.00-0 .10 Refer ence range s for nonbi nary/ inter sex or unspe cifie d gende r patie nts have not been estab lishe d. Pleas e [facility] for range s estab lishe d for cisge nder patie nts and evalu ate in the clini jenni mirella xt of the indiv idual patie nt: https ://la bhand book. nm.or g/gen derx Not Available [facility] (Lab) [address], [place], [address], 01/31/2025 08:43:03 01/31/2001/30/2025 TSH, REFLE X FREE T4 TSH 0.85 uIU/m L 0.30-5 .33 Not Available [facility] (Lab) [address] [place], [address], 01/31/2025 08:43:04 01/31/2001/30/2025 VITAM IN B12 / FOLAT E PANEL vitamin B12 192 pg/mL 180-91 4 Winifred l Range : 180-9 14 pg/mL . Indet ermin ate Range : 145-1 80 pg/mL . Defic ient Range : <=145 pg/mL . Not Available [facility] (Lab) [address] [place], [address], 01/31/2025 08:43:04 01/31/2001/30/2025 VITAM IN B12 / FOLAT E PANEL folate, serum 7.0 NG/mL 6.0-20 .0 Not Available [facility] (Lab) [address] [place], [address], 01/31/2025 08:43:04 01/31/20 25 01/30/2025 VITAM IN D, 25-OH (TOTA L D2/D3 ) vitamin D, 25-hydroxy, total 35.2 NG/mL 30.0-1 00.0 Sugge stive of Defic iency : <20 ng/mL Sugge stive of Insuf ficie ncy: 20-29 ng/mL Sugge stive of Suffi cienc y: 30-10 0 ng/mL Sugge stive of Toxic ity: >150 ng/mL Not Available [facility] (Lab) [address], [place], [address], 01/31/2025 08:43:05 Result Notes None recorded. Problems Name Problem SNOMED Code Status Onset Date Resolution Date Notes Provider Name and Address Organization Details Recorded Time Screenin g for malignan t neoplasm of cervix Completed 201312/10/2020 Screenin g for malignan t neoplasm s of the cervix;R ecorded Elsewher e: No Locat ion: [facility] N [place] ce ID: [id number] [place] lable Time: 10:15:00 AM Norma Hogan [facility] 16:23:42 Pregnanc y test negative [id number] Completed 201312/10/2020 Pregnanc y examinat ion or test, negative result;R ecorded Elsewher e: No Locat ion: [facility]: N Addisonti ce ID: 0001 [place] lable Time: 08:00:00 AM Norma Hogan [facility] 16:23:36 Insertio n of intraute rine contrace ptive device Completed 201312/10/2020 INSERTIO N OF IUD;Clayton rded Elsewher e: No Locat ion: [facility] S ource: [facility] [employer] lorna: N Addisonti ce ID: 0001 [place] lable Time: 08:00:00 AM Norma Hogan [facility] 16:23:25 Family planning surveill ance Completed 201312/10/2020 Contrace ptive surveill ance, unspecif ied;Clayton rded Elsewher e: No Locat ion: [facility]: N Suresh ce ID: 0001 [place] lable Time: 03:30:00 PM Norma Edison hernández, [facility] 16:23:18 Irregula r intermen strual bleeding [id number] Completed 201312/10/2020 Metrorrh agia;Rec orded Elsewher e: No Locat ion: [facility]: N Suresh ce ID: 0001 [place] lable Time: 03:30:00 PM Norma Edison [facility], [facility] 16:23:29 Female genital organ symptoms [id number] Completed 201412/10/2020 Pelvic pain;Rec orded Elsewher e: No Locat ion: [facility] S ource: [facility] lorna: N Suresh ce ID: 0001 [place] lable Time: 04:45:00 PM Norma Edison hernández, [facility] 16:23:20 Uses IUD (intraut erine device) contrace ption [id number] Completed 201412/10/2020 Surveill ance of intraute rine contrace ptive device;R ecorded Elsewher e: No Locat ion: [facility]: N Suresh ce ID: 0001 [place] lable Time: 03:30:00 PM Norma Edison hernández [facility] 16:23:32 Adult health examinat ion Completed 201412/10/2020 ROUTINE MEDICAL EXAM;Rec orded Elsewher e: No Locat ion: [facility] S ource: [facility] lorna: N Suresh ce ID: 0001 [place] lable Time: 01:00:00 PM Norma hernández [facility] 16:23:12 Speciali zed medical examinat ion Completed 201412/10/2020 Gynecolo gical Examinat ion;Clayton rded Elsewher e: No Locat ion: [facility] S ource: [facility] lorna: N Addisonti ce ID: 0001 [place] l[place] Time: 01:00:00 PM Norma Hogan edgar [facility] 16:23:[address] Concept Completed 201612/10/2020 Encntr for joint maker machine exam (general ) (routine ) w/o abn findings ;Recorde d Elsewher e: No Locat ion: [facility] S ource: [facility] lorna: N Practi ce ID: 0001 [place] l[place] Time: 01:00:00 PM Norma Hogan [facility] 16:23:44 Pelvic and perineal pain [id number] Completed 201612/10/2020 Pelvic and perineal pain;Rec orded Elsewher e: No Locat ion: [facility] S ource: [facility] lorna: N Addisonti ce ID: 0001 [place] l[place] Time: 01:00:00 PM Norma Hogan [facility] 16:23:34 Removal of intraute rine device Completed 201812/10/2020 Encounte r for removal of intraute rine contrace ptive device;R ecorded Elsewher e: No Locat ion: [facility] S ource: [facility] lorna: N Addisonti ce ID: 0001 [place] lable Time: 09:15:00 AM Norma Hogan edgar [facility] 16:23:39 Educatio n Completed 201912/10/2020 Encounte r for family planning advice;R ecorded Elsewher e: No Locat ion: [facility]: N Practi ce ID: 0001 [place] lable Time: 02:45:00 PM Norma Hogan edgar [facility] 1 16:23:15 Obesity [id number] Active 2022 Michel Kim MD [address], [place], [address], [place] [facility] 3 14:18:28 Problem Notes None recorded. Procedures Surgical History Date Name Laterality Status Provider Name and Address Organization Details Recorded Time 01/31/20 25 Date of Last Pap Smear completed [facility] 01/30/2025 21:26:51 06/24/20 21 section completed [facility] 05/28/2022 15:19:18 11/28/19 16 Appendectomy completed [facility] 04/18/2020 18:14:54 Imaging Results None recorded. Procedure Notes None recorded. Medical Equipment None Reported. Allergies No known drug allergies Medications Name Sig Start Date Stop Date Status Note LastModified by Organization Details LastModified Time Mirena 21 mcg/24 hr (up to 8 years) 52 mg intrauter ine device insert 05/16 completed Prescrib ed Elsewher e: No Locat ion: [facility] odify By: [email or web address] z Encoun ter DateTime : 03/05/20 12:04:19 PM Not Available Not Available Not Available neomycin- polymyxin -hydrocor t 3.5 mg/mL-10, 000 unit/mL-1 % ear solution ADMINIST ER 3 DROPS INTO EACH EAR 3 (THREE) TIMES A DAY 09/14 completed Not Available Not Available Not Available cetirizin e 10 mg tablet TAKE 1 TABLET BY MOUTH EVERY DAY FOR 14 DAYS active Not Available Not Available No t Available azithromy holley 250 mg tablet TAKE 2 TABLETS BY MOUTH TODAY, THEN TAKE 1 TABLET DAILY FOR 4 DAYS 09/14 completed Not Available Not Available Not Available clomiphen e citrate 50 mg tablet Take 1 tablet every day by oral route for 5 days. 12/10 completed Not Available Not Available Not Available ibuprofen 200 mg capsule take 1 capsule by oral route every 6 hours as needed 12/10 [facility] odify By: rolando turner DateTime : 02/06/20 14 10:15:00 AM Not Available Not Available Not Available phenazopy ridine 200 mg tablet TAKE ONE TABLET BY MOUTH THREE TIMES DAILY FOR 2 DAYS active Not Available Not Available No t Available phentermi ne 15 mg capsule Take 1 capsule every day by oral route. 01/11 completed Not Available Not Available Not Available sulfameth oxazole 800 mg-trimet hoprim 160 mg tablet TAKE 1 TABLET BY MOUTH TWICE A DAY FOR 5 DAYS active Not Available Not Available No t Available phentermi ne 30 mg capsule TAKE 1 CAPSULE BY MOUTH EVERY DAY 09/14 completed Not Available Not Available Not Available polymyxin B sulfate 10,000 unit-trim ethoprim 1 mg/mL eye drops ADMINIST ER 2 DROPS INTO THE RIGHT EYE 4 (FOUR) TIMES A DAY FOR 7 DAYS active Not Available Not Available No t Available fluoxetin e 10 mg capsule 09/12 completed Not Available Not Available Not Available ergocalci ferol (vitamin D2) 1,250 mcg (50,000 unit) capsule TAKE 1 CAPSULE BY MOUTH ONE TIME PER WEEK active Not Available Not Available No t Available ibuprofen 600 mg tablet 05/28 completed Not Available Not Available Not Available methylpre dnisolone 4 mg tablets in a dose pack TAKE 6 TABLETS ON DAY 1 DIRECTED ON PACKAGE AND DECREASE BY 1 TAB EACH DAY FOR A TOTAL OF 6 DAYS 09/14 completed Not Available Not Available Not Available ondansetr on 4 mg disintegr ating tablet DISSOLVE 1 TABLET ORALLY EVERY 6 HOURS NEEDED FOR NAUSEA AND VOMITING active Not Available Not Available No t Available fluticaso ne propionat e 50 mcg/actua tion nasal spray,deshawn pension active Not Available Not Available Not Available sertralin e 50 mg tablet TAKE 1 TABLET BY MOUTH EVERY DAY 05/28 completed Not Available Not Available Not Available oxycodone 5 mg tablet 05/28 completed Not Available Not Available Not Available Adult Low Dose Aspirin 81 mg tablet Take 1 tablet every day by oral route. 05/28 completed Not Available Not Available Not Available escitalop chapito 10 mg tablet TAKE 1 TABLET BY MOUTH EVERY DAY active Not Available Not Available No t Available Sprintec (28) 0.25 mg-0.035 mg tablet take 1 tablet by oral route every day 06/25 completed Prescrib ed Laraher e: No Locat ion: Mihai dao [facility] M odify By: cmedical Encount er DateTime : 02/06/20 10:15:00 AM Not Available Not Available Not Available topiramat e 50 mg tablet TAKE 1 TABLET BY MOUTH EVERY DAY 09/14 completed Not Available Not Available Not Available nitrofura ntoin monohydra te/macroc rystals 100 mg capsule TAKE 1 CAPSULE BY MOUTH EVERY 12 HOURS FOR 5 DAYS MUST ADMINIST ER WITH A MEAL/SHAMAR D active Not Available Not Available No t Available + DHA 05/28 completed Not Available Not Available Not Available Vitamin B12 05/28 completed Not Available Not Available Not Available Ozempic 0.25 mg or 0.5 mg (2 mg/1.5 mL) subcutane ous pen injector active Not Available Not Available Not Available Wegovy 1 mg/0.5 mL subcutane ous pen injector INJECT 1 MG UNDER THE SKIN EVERY 7 DAYS active Not Available Not Available No t Available Wegovy 0.25 mg/0.5 mL subcutane ous pen injector INJECT 0.5 ML (0.25 MG TOTAL) UNDER THE SKIN EVERY 7 DAYS active Not Available Not Available No t Available Wegovy 0.5 mg/0.5 mL subcutane ous pen injector INJECT 0.5 ML (0.5 MG TOTAL) UNDER THE SKIN EVERY 7 DAYS active Not Available Not Available No t Available Mounjaro 2.5 mg/0.5 mL subcutane ous pen injector Inject 2.5 mg every week by subcutan eous route. 01/11 completed Not Available Not Available Not Available Vitals Date Recorded Body height Body mass index (BMI) Body weight Systolic And Diastolic Provider Name and Address Organization Details Last Updated DateTime 01/30/2025 158.12 cm 36.3 kg/m2 90364.47 g 107/74 mm[Hg] Norma Hogan [place] - [facility] 01/30/2025 14:13:20 Date Recorded Body height Body mass index (BMI) Body weight Systolic And Diastolic Provider Name and Address Organization Details Last Updated DateTime 02/08/2023 158.12 cm 35 kg/m2 29454.33 g 132/76 mm[Hg] [facility] 02/08/2023 10:26:09 Date Recorded Body height Body mass index (BMI) Body weight Systolic And Diastolic Provider Name and Address Organization Details Last Updated DateTime 03/22/2023 158.12 cm 34.8 kg/m2 12422.74 g 119/55 mm[Hg] [facility] 03/22/2023 09:57:11 Date Recorded Body height Body mass index (BMI) Body weight Systolic And Diastolic Provider Name and Address Organization Details Last Updated DateTime 05/10/2023 158.12 cm 35 kg/m2 17534.33 g 116/72 mm[Hg] [facility] 05/10/2023 14:10:07 Date Recorded Body height Body mass index (BMI) Body weight Systolic And Diastolic Provider Name and Address Organization Details Last Updated DateTime 09/14/2023 158.12 cm 36.3 kg/m2 70459.47 g 108/74 mm[Hg] Norma Hogan [facility] 09/14/2023 09:47:35 Social History Question Answer Notes LastModified by Organizat ion Details LastModified Time Tobacco Smoking Status Never Smoker Norma Hogan null, [facility] 09/14/2023 09:48:29 Do You Have An Advance Directive? No [email or web address] Information n ot available 01/30/2025 If You Are , What Was Your Level Of Alcohol Consumption Prior To ? Occasional [email or web address] Information not available 09/14/2023 How Many Years Have You Consumed Alcohol? 10 [email or web address] Information not available 09/14/2023 Are You Blind Or Do You Have Difficulty Seeing? No [email or web address] Information n ot available 05/28/2022 What Is Your Level Of Caffeine Consumption? Moderate [email or web address] Information not available 09/14/2023 How Much Tobacco Do You Chew? None Information not available 01/30/2025 In The 14 Days Before Symptom Onset, Have You Had Close Contact With A Laboratory-confirm ed COVID-19 While That Case Was Ill? No [email or web address] Information n ot available 09/14/2023 In The 14 Days Before Symptom Onset, Have You Had Close Contact With A Person Who Is Under Investigation For COVID-19 While That Person Was Ill? No [email or web address] Information not available 09/14/2023 Have You Been To An Area Known To Be High Risk For COVID-19? No [email or web address] Information not available 09/14/2023 Are You Deaf Or Do You Have Serious Difficulty Hearing? No [email or web address] Information not available 05/28/2022 What Type Of Diet Are You Following? REGULAR [email or web address] Information n ot available 05/28/2022 Which Illicit Or Recreational Drugs Have You Used? No [email or web address] Information not available 09/14/2023 What Is The Highest Grade Or Level Of School You Have Completed Or The Highest Degree You Have Received? [id number] [email or web address] Information not available 09/14/2023 Are There Any Guns Present In Your Home? No [email or web address] Information not available 01/30/2025 What Was The Date Of Your Most Recent Tobacco Screening? 09/14/2023 [email or web address] Information not available 09/14/2023 Have You Ever Been Counseled For Unhealthy Alcohol Use? No [email or web address] Information not available 09/14/2023 Do You Use Protection During Sex? Always [email or web address] Information not available 09/14/2023 Do You Use Your Seat Belt Or Car Seat Routinely? Yes [email or web address] Information not available 09/14/2023 Do You Have Smoke And Carbon Monoxide Detectors In Your Home? Yes [email or web address] Information not available 09/14/2023 How Much Tobacco Do You Smoke? No [email or web address] Information not available 04/18/2020 Do You Use Sunscreen Routinely? Yes [email or web address] Information not available 09/14/2023 Have You Used IV Drugs? No [email or web address] Information not available 09/14/2023 Do You Have Difficulty Walking Or Climbing Stairs? No [email or web address] Information not available 09/14/2023 Sex: Unknown Functional Status Question Answer Note LastModified by Organizat ion Details LastModified Time Do you use any illicit or recreational drugs? No [email or web address] Information not available 12/10/2020 Do you or have you ever used any other forms of tobacco or nicotine? No [email or web address] Information not available 09/14/2023 What is your level of alcohol consumption? Occasional [email or web address] Information not available 01/30/2025 Do you or have you ever used smokeless tobacco? Never used smokeless tobacco Information not available 09/14/2023 Are you able to walk? YESWOREST [email or web address] Information not available 05/28/2022 Are you able to care for yourself independently? 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 No [email or web address] Information not available 09/14/2023 Do you or have you ever used e-cigarettes or vape? Never used electronic cigarettes Information not available 09/14/2023 What is your exercise level? Occasional [email or web address] Information not available 04/18/2020 Mental Status Question Answer Note LastModified by Organization D etails LastModified Time Do you feel stressed (tense, restless, nervous, or anxious, or unable to sleep at night)? [id number] [email or web address] Information not available 01/30/2025 Family History Relationship Description Onset Age of this Age Resolved Age Notes LastModified by Organization Details LastModified Time Maternal Grandmother Neoplasm of skin [email or web address] Not available 01/30 14:13:48 Mother Neoplasm of skin 40 [email or web address] Not available 01/30 14:13:48 Sister Anemia 18 [email or web address] Not available 01/30/2025 14:13:48 Sister Anemia 18 [email or web address] Not available 01/30/2025 14:13:48 Sister Anemia 18 Not available 01/30/2025 14:13:48 Sister Anemia 18 [email or web address] Not available 01/30/2025 14:13:48 Notes:Maternal grandmother: Cancer, skin Mother: Cancer, skin Medical History Condition Response Other N Blood Transfusion N Dermatologic Disorders N Gestational Diabetes N Anxiety Disorder Y Autoimmune disease N Arthritis N Polyps N Infertility N Acid Reflux (GERD) N Cancer N Varicosities N Stroke N Neurologic/Epilepsy N Fibromyalgia N Headaches Y Kidney Disease N Heart Problems N Kidney or Bladder Problems N Eating Disorder N Art (IVF or FET) N Hepatitis/Liver Disease N No Past Medical History N Urinary Tract Infection Y Asthma N Trauma/Violence N Thrombophilias N Allergies (Food, seasonal, environmental ) N Breast Cancer N Drug/Latex Allergies/Reactions N Lung Disease N Defects or Inherited Disease N Breast Problem N Hematologic disorders N Anesthesia Complications N History of STI N Deep Vein Thrombosis N Polycystic ovary syndrome N History of abnormal pap N Endometriosis N High Cholesterol N Thyroid Problems N GI Problems N Anemia Y Psychiatric Illness N Ovarian Cancer N Diabetes N Pulmonary (TB, Asthma) N Eczema N Abuse/Domestic Violence N Depression/ depression Y Heart Disease N Pre-Eclampsia N Hypertension N Osteoporosis N Gynecological History Statement/Question Response Flow Moderate Date of LMP 09/02/2023 On BCP's at Conception? N N Was last menstrual period normal Y STIs/STDs N HPV Vaccine N Duration of Flow (days) 30 Current Control Method N/A Age at First Child 30 Are cycles usually normal Y Sexually Active? Y None Menses Monthly Y Age of first menstrual cycle 14 Date of Last Pap Smear 01/30/2025 Sexual Problems? N Desired Control Method Sterilizati on LMP Definite N Obstetrics History GPAL:G 1 P 0 0 0 2 Type Value Multiple Births 1 Living 2 Total 1 Past Encounters Encounter ID Performer Location Encounter Start Date Encounter Closed Date Diagnosis/Indication Diagnosis SNOMED-CT Code Diagnosis ICD10 Code Diagnosis Note [id number] Kavita Villalobos CNM [place] [address],[facility] [address] 04/18/2020 09:22:52 04/18/2020 11:00:18 Mixed anxiety and depressive disorder 419215390 F41.8 [id number] Kavita Villalobos CNM [place] [address] [address] 09/12/2020 14:05:36 09/12/2020 14:53:40 Abnormal uterine bleeding [id number] 9100 N93.9 Trying to conceive 48341 9001 Z31.9 Pain in pelvis 90547698 R10.2 [place] [id number] Michel Kim MD [place] [address],[place] [address] 09/22/2020 16:16:05 09/23/2020 17:40:50 Irregular periods 21680549 N92.6 [id number] Kavita Villalobos [facility] [address],[place] [address] 12/10/2020 15:22:05 12/10/2020 18:29:32 Amenorrhea 14603239 N91.2 [id number] Michel Kim MD [place] [address],[place] [address] 12/10/2020 15:19:46 12/11/2020 08:08:20 [id number] Kavita Villalobos [place] [address],[place] [address] 05/28/2022 15:02:57 05/28/2022 15:55:42 Gynecologic examination 33463648 Z01.419 [id number] Michel Kim MD [place] [address],[place] [address] 06/01/2022 15:20:35 06/02/2022 16:27:47 Obesity 997635796 E66.9 This patient is a 31-year-ol d female with class 2 obesity. We discussed energy consumptio n and energy expenditur e in great detail. We discussed exercise. We discussed diet and calorie counting. We discussed the evaluation of obesity and treatment of obesity. We spent more than an hour face-to-fa ce. More than 50% was counseling . We agreed to arrange a dietitian consult. We are going to obtain labs. We are going to hold off on the sleep study for now. She performed body compositio n testing and intends to obtain a resting energy expenditur e testing. We will come back together in 2 weeks after all the data has accumulate d and discuss treatment options. [id number] Michel Kim MD [place] [address],[place] [address] 06/03/2022 09:42:08 06/04/2022 16:46:03 [id number] Michel Kim MD [place] [address],[place] [address] 06/19/2022 11:55:33 06/21/2022 16:00:50 Vitamin D deficiency 73739678 E55.9 Obesity 831661578 E66.9 This patient is a 31-year-ol d female with class 2 obesity. We discussed energy consumptio n and energy expenditur e in great detail. We discussed exercise. We discussed diet and calorie counting. We discussed the evaluation of obesity and treatment of obesity. We spent more than 40 min. face-to-fa ce. More than 50% was counseling . We agreed to arrange a dietitian consult. We are going to obtain labs. We are going to hold off on the sleep study for now. She performed body compositio n testing and intends to obtain a resting energy expenditur e testing. We will come back together in 2 weeks after all the data has accumulate d and discuss treatment options. [id number] Michel Kim MD [place] [address],[place] [address] 07/13/2022 15:58:58 07/13/2022 17:29:56 Anxiety 37788539 F41.9 Obesity 873975806 E66.9 This patient is a 31-year-ol d female presents for follow-up on obesity. She started phentermin e 2 weeks ago. She has lost 15 lb. She states that she may not have the desired effect from the medication . We agreed to go up to 30 mg a day. We also talked about treatment of anxiety. We agreed to treat anxiety with SSRI. 10 mg of Lexapro. Spent more than 20 minutes face-to-fa ce. More than 50% was counseling . She will return in 2 weeks to follow-up on the start of both the anxiety medication and the new dose of phentermin e. [id number] Michel Kim MD [place] [address],[place] [address] 07/27/2022 14:31:49 07/27/2022 15:23:22 Obesity 185130395 E66.9 This patient is a 31-year-ol d female who presents for weight management follow-up. She started 30 mg of phentermin e 2 weeks ago. She continues to see [facility] results. She has lost 10 lb overall in 1 month. She has become very active. They are very conscious of with the eaten are eating a very healthy diet. Is well balance with a appropriat e number of calories. She has no untoward side effects from the medication . We discussed injectable medication s and the new options available there. Spent over 20 minutes face-to-fa ce. more than 50% was counseling . [id number] Michel Kim MD [place] [address],[place] [address] 08/24/2022 14:03:20 08/24/2022 15:06:20 Obesity 880590700 E66.9 This patient is a 31-year-ol d female presents for weight loss management follow-up. We discussed the new diabetes drugs it is associated with great weight loss. We discussed these medication in detail. We discuss pricing, mechanism of action, side effects, dosing. We discuss the possibilit y of limited availabili ty. We agreed to change to this medication . We talked about the injection itself and the mechanics of it. We spent over 20 minutes face-t-fac e. more than 50% was counseling . [id number] Michel Kim MD [place] [address],[place] [address] 01/11/2023 15:18:20 01/11/2023 15:57:19 Obesity 648504003 E66.9 This patient is a 32-year-ol d female who presents for follow-up on weight management . She has gained some weight back. Is a small amount. She has added a lot of resistance training and this may be lean body mass. We talked about restarting her medication s. She was unable to get the GLP 1 agonist. She continues to manage sure diet and is exercising considerab ly. She will see dietitian. We spent over 20 minutes face-to-fa ce. More than 50% was counseling . [id number] Michel Kim MD [place] [address],[place] [address] 02/08/2023 10:08:20 02/08/2023 11:18:39 Obesity 786560987 E66.9 This patient is a 32-year-ol d female who presents for follow-up on weight management . She Lost about 7 lb in the last month. This is some of her most impressive changes.. She has added a lot of resistance training and this may be lean body mass.. She continues to manage sure diet and is exercising considerab ly. She will see dietitian. We spent over 20 minutes face-to-fa ce. More than 50% was counseling . [id number] Michel Kim MD [place] [address],[place] [address] 03/22/2023 09:51:38 03/22/2023 11:42:56 Obesity 346126146 E66.9 This patient is a 32-year-ol d female presents for follow-up on weight management . She has added more resistance training. This may explain her diminished weight loss. She is walking more. We talked about body compositio n and metabolism . We are considerin g body compositio n at our next visit, body compositio n testing. Talked about medication s. We agreed to increase phentermin e dose to 30 mg daily. Her diet is well controlled . We spent 20 minutes face-to-fa ce. More than 50% was counseling . [id number] Michel Kim MD [place] [address],[place] [address] 05/10/2023 14:04:05 05/10/2023 14:29:14 Obesity 274069164 E66.9 Patient is a 32-year-ol d female presents for follow-up on weight management . She is experience a plateau. She is having some personal issues that involve separation from her . Possible dissolutio n of her marriage. There has been significan t cast home. She has been taken off of her weight loss routine she is ready to get refocused continue her weight loss journey. We talked about body compositio n diet. Talked about the medication s. She is experienci ng good appetite suppressio n still with 30 mg of phentermin e. Spent 20 minutes face-to-fa ce. More than 50% was counseling . [id number] [facility] [address] [address] 09/14/2023 09:40:38 09/14/2023 11:09:44 Gynecologic examination 41301720 Z01.419 [id number] [facility] [address] [address] 01/30/2025 14:01:03 01/30/2025 14:28:56 Irregular periods 10449956 N92.6 call if more than one cycle a month or cycles last longer than 10 days Fatigue 80827872 R53.83 Health Concerns Section Related Observation LastModified by Organization Detai ls LastModified Time None Recorded Concern Status LastModified by Organization Details LastModified Time None Recorded Advance Directives Directive N: Payers Insurance Date Sequence Insurance Name Policy Number Policy Mcqueen Covered Member ID Mcqueen Member ID Guarantor Name 04/16/2022 1 [employer] [facility] PRIOR TO 05/28/21 - [facility] [employer] Archie Ott [id number] Yue Ott 02/09/2023 1 [employer] - NOW (INDEMNITY) Archie Ott [id number] OI Yue tOt 01/29/2025 1 [employer] [facility] [employer] Archie Ott [id number] OI Yue Ott Notes Date Note Type Note Provider Name and Address Organization Details Recorded Time 3 text/html This patient is a 32-year-old female who presents for follow-up on weight management. She Lost about 7 lb in the last month. This is some of her most impressive changes.. She has added a lot of resistance training and this may be lean body mass.. She continues to manage sure diet and is exercising considerably. She will see dietitian. We spent over 20 minutes [id number]. More than 50% was counseling. Michel Kim MD [address], [place], [address], [facility] 02/08/2023 10:43:38 3 text/html This patient is a 32-year-old female presents for follow-up on weight management. She has added more resistance training. This may explain her diminished weight loss. She is walking more. We talked about body composition and metabolism. We are considering body composition at our next visit, body composition testing. Talked about medications. We agreed to increase phentermine dose to 30 mg daily. Her diet is well controlled. We spent 20 minutes [id number]. More than 50% was counseling. Michel Kim MD [address], [place], [address], [facility] 03/22/2023 11:23:59 3 text/html Patient is a 32-year-old female presents for follow-up on weight management. She is experience a plateau. She is having some personal issues that involve separation from her . Possible dissolution of her marriage. There has been significant cast home. She has been taken off of her weight loss routine she is ready to get refocused continue her weight loss journey. We talked about body composition diet. Talked about the medications. She is experiencing good appetite suppression still with 30 mg of phentermine. Spent 20 minutes [id number]. More than 50% was counseling. Michel Kim MD [address], [place], [address], [facility] 05/10/2023 14:28:37 3 text/html Annual GYNReported by PatientHistoryFor history, patient reportsno gynecologic complaints.Genitourinary symptomsFor menstrual cycle, patient reportsnormal menses. For urinary symptoms, patient reportsno hematuriaandno incontinence. For vulva, patient reportsno genital lesion. For vagina, patient reportsnormal vaginal discharge.Breast symptomsFor breast, patient reportsno breast pain,no breast lump, andno nipple discharge.ContraceptionFo r current contraception, ( has vasectomy but currently in middle of divorce, does not want to conceive again, interested in permanent sterilization).Endocrine symptomsFor sexual complaints, patient reportsno sexual complaints,no pain during intercourse, andnormal libido. For menopausal symptoms, patient reportsno menopausal symptomsandnormal vaginal lubrication.Psychological symptomsFor psychological symptoms, patient reportsno depression,no anxiety, andno pmdd.Preventative measuresFor preventive measures, patient reportsencourage self breast examination,encourage regular exercise, andencourage no tobacco use.going through divorce, is doing well, twins are good!ROS as noted in the [facility] Kavita Villalobos CNM [address], [place], [address], [facility] 09/14/2023 11:08:24 5 text/html Annual GYNReported by PatientGenitourinary symptomsFor menstrual cycle, (cycles 7-9 days light first few days).Breast symptomsFor breast, patient reportsno breast pain,no breast lump, andno nipple discharge.Endocrine symptomsFor sexual complaints, patient reportsno sexual complaints,no pain during intercourse, andnormal libido. For menopausal symptoms, patient reportsno menopausal symptomsandnormal vaginal lubrication.Psychological symptomsFor psychological symptoms, patient reportsno depression,no anxiety, andno pmdd.Preventative measuresFor preventive measures, patient reportsencourage self breast examination,encourage regular exercise, andencourage no tobacco use.divorce complete, dating a female, declines std testing, twins are 3.5!ROS as noted in the [facility] Kavita Villalobos CNM [address], [place], [address], [facility] 01/30/2025 14:27:57 OBGyn Episode Ob Episode Information Episode Created Date Number of Fetuses Patient Bloodtype Patient rh Status Prepregnancy Weight lbs Domestic Partner Domestic Partner Phone Father Name Food Technologist Status 05/28/20 22 2 CLOSED Fetus Data First Name Last Name Admitted to NICU Weight (g) Sex Living Outcome Pediatric Complications Fetus ID Race Codes Race Delivery Type 2664.85 3 M Prematur e [id number] Primary 2749.67 4704 F Prematur e 61033 Primary Dane Calculation Initial Dane Date Initial Exam Date Initial Exam Provider Initial Ultrasound Date Last Menstrual Period Date Ultra Sound Weeks Gestation 0 Eighteen To Twenty Week Dane Update Ultra Sound Date Fundal Height At Umbil Quickening Date Ultra Sound Latest Weeks Gestation Final Dane Confirmed By Final Dane Confirmed Date Final Dane Date Ultra Sound Latest Days Gestation 0 0 Menstrual History Last Menstrual Date Menses Monthly On Bcp Conception Prior Menses Frequency Hcg Plus Date Menarche Onset Age Delivery Information Delivery Date Delivery Type Labor Anesthesia Weeks Gestation Incision Type Labor Labor Length Hrs Delivered By Post Complications Tubal Sterilization Discharge Date Comments 1 36 Discharge Information Feeding Method Contraceptive Method Maternal HG B and HCT Levels
[2025-06-21 19:09] VITALS: BP 124/77; PULSE 75; RESP 16; TEMP 36.5; O2SAT 100
--- NOTE | 2025-06-21 19:10 | ED_ITS ---
HPI - Extremity Injury (Lower) General Chief Complaint: Extremity Injury, Lower Stated Complaint: Toe Injury Time Seen by Provider: 06/21/25 19:11 Source: patient Mode of arrival: ambulatory Limitations: no limitations History of Present Illness HPI Narrative: 34 yo F presents with concern for fracture to L 4th toe. Rammed her toe into ottoman 4 wks ago. pain had been improved. Went for pedicure and during massage when toe was being pulled on pt state's it felt floppy and like it was being pulled off of foot. distal NV intact. All systems reviewed and negative except as noted above. Related Data Home Medications ?Medication ?Instructions ?Recorded ?Confirmed ?Last Taken ?Type escitalopram oxalate 10 mg tablet 10 mg PO DAILY 01/22/23 06/21/25 Unknown History semaglutide (weight loss) 0.5 0.5 mg subcut WEEKLY 10/02/24 06/21/25 Unknown History mg/0.5 mL subcutaneous pen injector (Wegovy) duloxetine 30 mg capsule,delayed mg PO 06/21/25 Unknown History release meclizine 12.5 mg tablet mg 06/21/25 Unknown History semaglutide (weight loss) 1.7 mg subcut 06/21/25 Unknown History mg/0.75 mL subcutaneous pen injector (Wegovy) Allergies Allergy/AdvReac Type Severity Reaction Status Date / Time No Known Allergies Allergy Verified 06/21/25 19:26 PMFSH Comments At time of signature, agree with nursing past medical, surgical, social and family history. There is no relevant family history pertinent to the presenting complaint. Exam Narrative: GENERAL: This is a well-nourished, well-developed patient, in no apparent distress. HEAD: normocephalic, atraumatic. EYES: PERRL. Sclera clear/white. Vision is grossly intact. EARS: External ears normal NOSE: External nose normal NECK: Neck supple, non-tender without lymphadenopathy, masses or thyromegaly. CARDIOVASCULAR: Regular rate and rhythm without murmurs, gallops, or rubs. RESPIRATORY: Clear to auscultation. Breath sounds equal bilaterally. No wheezes, rales, or rhonchi. SKIN: warm, Dry, intact with no suspicious lesions or rash, good texture and turgor. NEURO: awake, alert, and oriented to person, place and time. There were no ob vious focal neurologic abnormalities. EXTREMITIES: tenderness to L toe without swelling or deformity. distal NV intact. decreased extension but otherwise normal ROM. Course Course Level of Care: Express Care Visit Vital Signs Vital signs: Vital Signs Temperature 36.5 C 06/21/25 19:09 Pulse Rate 75 06/21/25 19:09 Respiratory Rate 16 06/21/25 19:09 Blood Pressure 124/77 06/21/25 19:09 Pulse Oximetry 100 06/21/25 19:09 Oxygen Delivery Room Air 06/21/25 19:09 Temperature 36.5 C 06/21/25 19:09 Pulse Rate 75 06/21/25 19:09 Respiratory Rate 16 06/21/25 19:09 Blood Pressure 124/77 06/21/25 19:09 Pulse Oximetry 100 06/21/25 19:09 Oxygen Delivery Room Air 06/21/25 19:09 reviewed MDM - Extremity Injury (Lower) MDM Narrative Medical decision making narrative: fracture to L 4th toe. radiologist reports no productive changes of healing. pt feels like toe is moving and floppy since pedicure. prior to that, pain had been improved. will refer to orthopedics. Differential Diagnosis Differential diagnosis: Likely fracture of toe Imaging Data My impression: agree with radiologist Radiologist's impression: EXAMINATION: XR toe 4th LT min 2V DATE: 06/21/2025 19:25 INDICATION: Left fourth toe feels floppy post injury 4 weeks prior. TECHNIQUE: Dorsal plantar, lateral and 2 oblique views of the left fourth toe were obtained. COMPARISON: None FINDINGS: Oblique diaphyseal fracture of the left fourth proximal phalanx with minimal dorsal lateral displacement, 7 degrees dorsal angulation and 2 mm proximal migration with overriding. No evident periosteal reaction or callus formation yet apparent. No other fractures identified. Joint spaces are normal. IMPRESSION: Extra articular diaphyseal fracture of the left fourth proximal phalanx with minimal displacement and some degree dorsal angulation which remains ununited with no productive changes of healing yet apparent. Discharge Plan Discharge Clinical Impression: Closed fracture of fourth toe of left foot Patient Disposition: Home Condition: Stable Instructions: Toe Fracture (ED) Additional Instructions: The x-ray of your left 4th toe shows a fracture. Take tylenol or ibuprofen as needed for pain. Elevate when at rest. Wear post op shoe when ambulatory. Schedule follow up appointment with rating specialist. Patient Language: Bolivian Prescriptions: No Action escitalopram oxalate 10 mg tablet 10 mg PO DAILY Wegovy 0.5 mg/0.5 mL pen injector 0.5 mg SUBCUT WEEKLY meclizine 12.5 mg tablet duloxetine 30 mg capsule,delayed release(DR/EC) PO Wegovy 1.7 mg/0.75 mL pen injector SUBCUT Follow-up/Referrals: Tate Rose MD [Physician] - (follow up with orthopedics for further evaluation of toe fracture) PHYSICIAN NOT ON STAFF,NONSTAFF [Primary Care Provider] - Stand Alone Forms: Work/School Release IP Time of Disposition: 20:04
== END 2025-06-21 20:08 | disposition home or self-care (01) ==
PROVIDERS: Emergency Provider Nurse Practitioner Family
DX: S92.512A Displaced fracture of proximal phalanx of left lesser toe(s), initial encounter for closed fracture (principal); X58.XXXA Exposure to other specified factors, initial encounter; F41.9 Anxiety disorder, unspecified
CPT/HCPCS: 73660; 99214; G0463

== ENCOUNTER 2025-08-12 12:41 | Outpatient (CLI) | payer OTHER, SELFPAY ==
--- NOTE | ~2025-08-12 | XR_ITS ---
EXAM/ PROCEDURE: XR foot LT min 3V - 08/12/2025 12:40 CDT HISTORY: 34 years old Female with M79.672 - Pain in left foot, f/u COMPARISON: None available TECHNIQUE: Three view(s) FINDINGS/ IMPRESSION: Healing fracture of the left fourth proximal phalanx. Normal stable alignment. Soft tissue appears unremarkable. Joint spaces are within normal limits. Reviewed, dictated and finalized at location N.
--- OUTSIDE RECORDS SUMMARY | 2025-08-12 14:44 | XMS_ITS | Clinical Summary ---
Author Organization [facility] Address [address] [place] [id number] Care Team Providers Care Obedience Trainer Name Role Phone Unavailable Primary Care Provider [...] Health Maintenance Due Date Last Done Comments DTAP/TDAP/TD VACCINES (1 - Tdap) 2011 HEPATITIS B VACCINES (1 of 3 - 19+ 3-dose series) 08/29 HPV/Cotest (21-29) 2013 HPV VACCINES (1 - 3-dose SCDM series) 2019 CERVICAL CANCER SCREENING 2022 HPV/Cotest (30-65) 2022 PAP SMEAR 2022 INFLUENZA VACCINE (#1) 2025 08/19/2020 Insurance [employer] OPEN ACCESS
--- OUTSIDE RECORDS SUMMARY | 2025-08-12 14:44 | XMS_ITS | Clinical Summary ---
Author Organization [facility] Address [address] [place] [address] Care Team Providers Care Infant Teacher Name Role Phone Shantel Taylor MD Primary Care Provider [phone] Allergies No known active allergies Medications ergocalciferol (VITAMIN D) 50,000 unit capsuleIndicati ons:Vitamin D deficiency Take 1 capsule (50,000 Units total) by mouth once a week 12 capsule 4 4 Active semaglutide (Wegovy) 1.7 mg/0.75 mL auto-injector [...] Active Additional Information Patient not taking.Reported on 06/25/2025 polymyxin B-trimethoprim (POLYTRIM) ophthalmic solution APPLY 1 DROP IN AFFECTED EYE 4 TIMES A DAY FOR 7 DAYS 5 Active meclizine (ANTIVERT) 12.5 mg tabletIndicatio ns:Vertigo Take 1 tablet (12.5 mg total) by mouth 3 (three) times a day as needed for dizziness 21 tablet 5 Active busPIRone (BUSPAR) 5 mg tabletIndicatio ns:Generalized Anxiety Disorder Take 1 tablet (5 mg total) by mouth 2 (two) times a day 180 tablet 3 5 Active semaglutide (WEGOVY) 2.4 mg/0.75 mL auto-injector Inject 2.4 mg under the skin every 7 days 3 mL 5 Active Active Problems Problem Noted Date Diagnosed Date Fatigue 05/24/2025 Assessment & Plan (05/24/2025 12:45 PM CDT): Likely as a result of fibromyalgia. Symptoms include fatigue, sleep disturbance, intermittent diffuse muscle pain. Labs from 01/30/2025 with no anemia. Can consider repeating CBC, TSH, CMP. Patient is agreeable, would like to proceed with further workup. Fibromyalgia syndrome 05/04/2025 Assessment & Plan (07/23/2025 8:19 AM CDT): Chronic, stable. Symptoms of ongoing fatigue, sleep disturbances, word-finding difficulty, and intermittent diffuse muscle pain in setting of known ROSANNA indicates fibromyalgia syndrome Current symptoms controlled. Medication includes duloxetine 30 mg bid. -continue current medication Assessment & Plan (06/25/2025 3:56 PM CDT): -Symptoms of ongoing fatigue, sleep disturbances, word-finding difficulty, and intermittent diffuse muscle pain in setting of known ROSANNA indicates fibromyalgia syndrome -Plan is to discontinue Lexapro and begin Duloxetine 30mg to take daily Assessment & Plan (05/24/2025 12:44 PM CDT): [...] (generalized anxiety disorder) 07/27/2024 Assessment & Plan (07/23/2025 8:18 AM CDT): Chronic, stable. ROSANNA score 1; improved from 17. Currently on duloxetine 30 mg bid and buspirone 5 mg bid. -continue current meds Assessment & Plan (06/25/2025 3:56 PM CDT): Chronic, uncontrolled. ROSANNA score 17; severe anxiety -d/c lexapro -start duloxetine 30 mg bid -start buspirone 5 mg bid Orders: busPIRone (BUSPAR) 5 mg tablet; Take 1 tablet (5 mg total) by mouth 2 (two) times a day Assessment & Plan (07/27/2024 8:34 AM CDT): [...] CBC. Assessment & Plan (11/26/2019 10:25 PM RACK PULLER): Continue iron supplementation and check iron levels [...] ears Assessment & Plan (01/27/2023 10:26 AM RACK PULLER): Ordered Azithromycin and Medrol- take as prescribed Patient educated on new medications and side effects Patient advised to stop Medrol if she has increased or racing heart and/or palpitations Encouraged to call and schedule appoint if no improvement in 1 week Follow up in 3 months for annual exam Fasting labs ordered Postnasal drip 01/27/2023 07/27/2024 Assessment & Plan (01/27/2023 10:20 AM RACK PULLER): Continue with Fluticasone nasal spray as directed [...] 07/27/2024 Overview (06/09/2021): --Di/Di Twins, FREDDIE from [facility] [place] at 13 weeks. -NSTs @ 32wks -BPPs until 36wks d/t failed NSTs --conceived on Clomid -mild anemia, daily feso4 -please discuss delivery planning 38wks [x] Labs: (had gc/ch and trich test done @ [facility]) Labs: Lab Results Component Value Date ABORH A Positive 01/09/2021 IDCOOMB Negative 01/09/2021 [id number] Nonreactive 01/09/2021 LABRPR Nonreactive 01/09/2021 RUBELIGG Reactive [...] 11/10/201707/27 Assessment & Plan (11/10/2017 11:14 AM RACK PULLER): Patient was thoroughly assessed with no focal [...] additional follow-up. She was encouraged to take [id number] anti inflammatory, ibuprofen up to 600 mg 3 times daily as needed. She was also given a short course of Parafon Forte for use at bedtime for muscle spasm/tension. She was encouraged to follow up here with any change in, worsening, or non improvement in her condition. Other headache syndrome 11/10/201704/2018 Assessment & Plan (11/10/2017 11:14 AM RACK PULLER): Patient was thoroughly assessed with no focal neurological deficits noted. Her symptoms are consistent with a mild concussion. Diagnoses was discussed at length. She was given handout regarding concussive symptoms - what is normal and what would warrant additional follow-up. She was encouraged to take [id number] anti inflammatory, ibuprofen up to 600 mg [...] Encounters Date Type Department Care Team Description 07/23/2025 8:00 AM CDT Telemedicine [facility] at [address] [place] [phone] Shantel Taylor MD ROSANNA (generalized anxiety disorder) (Primary Dx); Fibromyalgia syndrome 06/25/2025 1:30 PM CDT Office Visit [facility] at [address] [phone] Shantel Taylor MD ROSANNA (generalized anxiety disorder) (Primary Dx); Fibromyalgia syndrome 06/15/2025 4:30 PM CDT Office Visit [facility] Medical Group [facility] [place] [address] [place] [address] Lydia Rene NP Vertigo (Primary Dx) 05/24/2025 10:00 AM CDT Office Visit [facility] Medical [facility] at [address] [phone] Shantel Taylor MD Fatigue, unspecified type (Primary Dx); Fibromyalgia syndrome from Last 3 Months Immunizations Immunization Administration [...] Hx Other Medical Mirena IUD 06/16 14 [facility] Anxiety Closed fracture of left distal radius 08/14/2019 Supervision of other normal , antepartum 12/17/2020 --Di/Di Twins, FREDDIE from [facility] at 13 weeks. -NSTs @ 32wks -BPPs [...] Breast cancer Mother Other Mother Cancer -skin (jarek rodriguez?); Relation Name Status Comments Brother 1 Alive Brother 2 Father Jefry Bermeo Alive Mother Alive Social History Tobacco Use Types Packs/Day Years Used Date Smoking Tobacco: Never Cigarettes Smokeless Tobacco: Never Tobacco Cessation:Counseling Given: Not Answered Alcohol Use Standard Drinks/Week Comments Not Currently 0 (1 standard drink = 0.6 oz pur e alcohol) [facility] Utilities Answer Date Recorded In the past 12 months has e [employer], gas, oil, or water [employer] threatened to shut off services in your [...] or ex-partner? No 07/27/2024 Social Connection and Isolation Panel Answer Date Recorded In a typical week, how many times do you talk on the phone with family, friends, or neighbors? More than three times a week 07/27/2024 How often do you get togethe r with friends or relatives? More than three times a week 07/27/2024 How often do you attend [facility] or latter day services? More than 4 times per year 07/27/2024 Do you belong to any clubs o r organizations such as baptism groups, unions, fraternal or athletic groups, or school groups? No 07/27/2024 How often do you attend meet ings of the clubs or organizations you belong to? Never 07/27/2024 Are you , , di vorced, , never , or living with a partner? 07/27/2024 AUDIT-C Answer Date Recorded Q1: How often do you have a drink containing alcohol? Never 06/25/2025 Q2: How many drinks containi ng alcohol do you have on a typical day when you are drinking? Patient does not drink Q3: How often do you have si x or more drinks on one occasion? Never 06/25/2025 Overall Financial Resource Strain (CARDIA) Answe r Date Recorded How hard is it for you to pa y for the very basics like food, housing, medical care, and heating? Not hard at all 07/27/2024 PHQ-2 Answer Date Recorded PHQ-2 Total Score (If total score is 3 or more points, staff should administer the PHQ-9) 0 06/25/2025 [facility] - Occupational Stress [...] any time in the past 12 m [facility], were you homeless or living in a senior living (including now)? No 07/27/2024 Comments No Sex and Gender Information Value Date Recorded Sex Assigned at Not on file Legal Sex Female 9:55 AM RACK PULLER Gender Identity Female 01/16/2021 2:20 PM RACK PULLER Sexual Orientation Straight 01/16/2021 2: 20 PM RACK PULLER Occupation Industry Job Start Date Job End [...] /Epidu ral N Livin g 7 7 OTT ,ONEB Sumaya Mcmillan MD Complications:Pre eclampsia Delivery [facility] ([facility] PROC[facility]) 2020 36w 3d 0h 03m 0h 03m 2.76 kg (6 lb 1.4 oz) F CS-LT ranv Combin ed Spinal /Epidu ral N Livin g 7 8 OTT ,TWOG IRLJE Sumaya Chilel MD Complications:Pre eclampsia Delivery Location:[facility] ([facility] PROC[facility]) Comments [id number] who is b eing admitted for preE w/SF with [facility] visit due to notable headache not relieved by tyl, compazine, fioricet and newly elevated BPs max to 150/90s and upc 0.7 to make this dx, all other labs WNL. DADC TIUP with Breech/Tr Last Filed Vital Signs Vital Sign Reading Time Taken Comments Blood Pressure 106/64 06/25/2025 1:46 PM CDT Pulse 101 06/25/2025 1:46 PM CDT Temperature 36.6 C (97.8 F) 06/15/2025 4:29 PM CDT Respiratory Rate 20 06/25/2025 1:46 PM CDT Oxygen Saturation 97% 06/25/2025 1:46 PM CDT Inhaled Oxygen Concentration - - Weight 87.5 kg (193 lb) 06/25/2025 1:46 PM CDT Height 157.5 cm (5' 2.01) 06/25/2025 1:46 PM CD T Body Mass Index 35.29 06/25/2025 1:46 PM CDT Plan of Treatment Health Maintenance Due Date Last Done Comments HPV Vaccines (2 - 3-dose series) 10/14/2008 2008 Regular Well Visit/Exam 18-64 03/13/2022 03/13/2021, 11/06/2019, 08/19/2017 Cervical Cancer Screening 09/14/2024 09/14/2023 Influenza Vaccine (#1) 2025 3, 08/28/2022, 08/19/2020, Additional history exists Depression Screening 06/25/2026 06/25/2025, 05/24/2025, 05/03/2025, Additional history exists DTaP/Tdap/Td Vaccine (8 - [...] last revised on 2020. Testing performed by: [facility], [address] [place] [address]., [id number] Blood 07/27/2024 8:42 AM CDT 07/27/2024 12:13 PM CDT us Meron Marshall NP LAB MICROBIOLOGY - GENERAL ORDER LEATHA Edited Result - Final GAVINO TINOCO (OTTERBEIN) 1 [facility] Department [place] [address] from Last 3 Months or Most Recently Relevant to Health Maintenance Insurance [employer] [facility] [id number] [facility] H[facility]/PPO Address: [address] [address] [place] [address] [facility] Advance Directives For more information, please contact: [phone] * Full Code (Latest Code Status on File) Date Activated Date Inactivated Comments 06/24/2021 6:52 AM 06/27/2021 10:29 PM * Full Code Date Activated Date Inactivated Comments 06/24/2021 1:54 AM 06/24/2021 6:52 AM Full CPR in case of cardiopulmonary arrest Care Teams Infant Teacher Relationship Specialty Start Date End Date Shantel Taylor MD [address] [facility] [address] [place] [address] [place] [id number] PCP - General Family Medicine 05/24/25
== END 2025-08-12 12:42 | disposition home or self-care (01) ==
LOC: ANHBWCIMG 12:41
PROVIDERS: Visit Provider Orthopaedic Surgery
DX: S92.512D Displaced fracture of proximal phalanx of left lesser toe(s), subsequent encounter for fracture with routine healing (principal); X58.XXXD Exposure to other specified factors, subsequent encounter
CPT/HCPCS: 73630